=== PATIENT | female | born 1980 | race Caucasian/White ===

== ENCOUNTER 2024-08-03 14:47 | Emergency (ER) | payer MEDICARE, MEDICAID, SELFPAY ==
--- NOTE | ~2024-08-03 | US_ITS ---
EXAMINATION: US PELVIS TRANSABDOMINAL AND TRANSVAGINAL HISTORY: lower abd pain, irreg vaginal bleeding COMPARISON: There are no prior studies for comparison. TECHNIQUE: Transabdominal and endovaginal real-time 2D phan-scale ultrasound was performed. Color Doppler was also performed. FINDINGS: Uterus: The uterus is normal in size, measuring 9.3 x 4.6 x 5.8 cm. Myometrium has a normal echotexture. No fibroids are identified. Endometrium: The endometrial stripe measures 11 mm in thickness. Right ovary: The right ovary measures 3.4 x 1.9 x 2.1 cm. The right ovary is normal in size and echotexture. Left ovary: The left ovary measures 5.9 x 3.7 x 3.2 cm. There is a 4.0 x 2.2 x 3.2 cm simple cyst in the left ovary. Color Doppler analysis of the bilateral ovarian arteries and veins are normal. Pelvic fluid: none. US/US pelvic and transvaginal IMPRESSION: 4.0 x 2.2 x 3.2 cm left ovarian cyst. A follow-up examination in 6 weeks, at a different time in the patient's menstrual cycle, is recommended to document resolution. Electronically signed by: Lobo Tan MD 08/04/2024 08:09 AM [facility]
[2024-08-03 16:09] VITALS: BP 158/88; PULSE 91; RESP 18; O2SAT 98; BMI 54.7
--- NOTE | 2024-08-03 16:14 | ED.ABDPAIN ---
HPI - Abdominal Pain General Chief Complaint: Abdominal Pain Stated Complaint: abd pain Related Data Allergies Allergy/AdvReac Type Severity Reaction Status Date / Time No Known Allergies Allergy Verified 08/04/24 11:03 [facility] Social History Social History Advance Directives: No Advance Directives Information Provided: Yes Do you have a plan to hurt others: No Plan Physical Exam ED Vital Signs: Vital Signs - 24 hr 08/03/24 16:09 Pulse Rate 91 Respiratory Rate 18 Blood Pressure 158/88 H Pulse Oximetry 98 Oxygen Delivery Method Room Air BMI result Body Mass Index 54.7 Course Course Course Narrative: This is a Rapid Medical Examination (RME) performed by Abigail Hou PA-C in triage. Full HPI, ROS, assessment and treatment plan per primary provider in the Main ED. 43 yo female here for eval of lower abdominal pain and irregular vaginal bleeding. Plan: labs, UA, ultrasound ordered Reevaluation(s) Reevaluation #1: Patient left the emergency department before myself or any of the other clinicians could review or explain physical exam findings, test results, need or lack there of for additional testing, treatment options, or a treatment plan. Medical Decision Making Lab Data 08/03/24 17:32 08/03/24 17:31 Labs: Lab Results 08/03/24 08/03/24 08/03/24 Range/Units 17:31 17:32 17:44 WBC 11.8 H (4.8-10.8) X10*3/uL RBC 4.42 (4.20-5.50) X10*6/uL Hgb 12.8 (12.0-16.0) g/dl Hct 37.7 (37.0-47.0) % MCV 85.3 (80.0-98.0) fL MCH 29.0 (27.0-33.0) pg MCHC 34.0 (31.0-35.0) g/dl RDW 13.0 (11.0-16.0) % Plt Count 341 (160-400) X10*3/uL MPV 10.6 (9.4-12.3) fL Immature Gran % (Auto) 0.4 (0.0-0.4) % Neut % (Auto) 55.1 (45-73) % Lymph % (Auto) 31.7 (20-40) % [place] % (Auto) 7.6 (2-11) % Eos % (Auto) 4.6 H (0-4) % Baso % (Auto) 0.6 (0-2) % Lymph # (Auto) 3.7 (1.2-4.9) X10*3/uL [place] # (Auto) 0.9 (0.1-1.2) X10*3/uL Eos # (Auto) 0.5 H (0.0-0.4) X10*3/uL Baso # (Auto) 0.1 (0.0-0.2) X10*3/uL Abs Immat Gran (auto) 0.05 H (0.00-0.03) X10*3/uL Absolute Neuts (auto) 6.5 (2.0-8.3) x10*3/uL Absolute Nucleated RBC 0.000 (0.0-0.012) X10*3/uL Nucleated RBC % (auto) 0.0 (0.0-0.2) /100WBC PT 11.5 (10.9-12.4) SEC INR 1.0 (0.9-1.1) Sodium 137 (135-145) mmol/L Potassium 4.0 (3.3-5.1) mmol/L Chloride 104 (96-108) mmol/L Carbon Dioxide 24 (22-29) mmol/L Anion Gap 13 (12-20) BUN 11 (9-16) mg/dL Creatinine 0.71 (0.5-1.4) mg/dL Estim Creat Clear Calc 151.4 Estimated GFR > 60 Random Glucose 263 H (60-115) mg/dL Calcium 9.1 (8.4-10.2) mg/dL Magnesium 1.6 (1.6-2.6) mg/dL Total Bilirubin 0.2 (0.0-1.0) mg/dL AST 37 H (5-31) U/L ALT 26 (0-31) U/L Alkaline Phosphatase 116 (39-117) U/L Total Protein 7.2 (6.5-8.0) g/dL Albumin 3.9 (3.5-5.0) g/dL Beta HCG, Quant < 2 mIU/mL Urine Color Yellow Urine Appearance Clear Urine pH 6.0 (5.0-9.0) Ur Specific [place] >= 1.030 H (1.005-1.025) Urine Protein Negative (Neg-Trace) mg/dL Urine Glucose (UA) >=1000 H (Negative) mg/dL Urine Ketones Negative (Negative) mg/dL Urine Blood Negative (Negative) Urine Nitrite Negative (Negative) Ur Leukocyte Esterase Negative (Negative) Urine RBC 0-2 (0-2) /HPF Urine WBC 0-5 (0-5) /HPF Ur Squamous Epith Cells 3-5 (0-2) /HPF Urine Bacteria Trace (None Seen) Hyaline Casts 0-2 (0-2) /LPF Urine Test NEGATIVE (NEGATIVE) Discharge Plan Discharge Clinical Impression: Abdominal pain Patient Disposition: Left W/O Completing Treatment Discharge Date/Time: 08/03/24 21:59
[2024-08-03 17:47] LABS: MANUAL DIFF FLAG NO
[2024-08-03 17:50] LABS: Basophils Absolute Auto 0.1 X10*3/uL (0.0-0.2); Basophils Percent Auto 0.6 % (0-2); Eosinophils Absolute Auto 0.5 X10*3/uL (0.0-0.4); Eosinophils Percent Auto 4.6 % (0-4); Hematocrit 37.7 % (37.0-47.0); Hemoglobin 12.8 g/dl (12.0-16.0); Imm Gran Abs Auto 0.05 X10*3/uL (0.00-0.03); Imm Gran Pct Auto 0.4 % (0.0-0.4); Lymphocytes Absolute Auto 3.7 X10*3/uL (1.2-4.9); Lymphocytes Percent Auto 31.7 % (20-40); Mean Corpuscular Volume 85.3 fL (80.0-98.0); Mean Platelet Volume 10.6 fL (9.4-12.3); Monocytes Absolute Auto 0.9 X10*3/uL (0.1-1.2); Monocytes Percent Auto 7.6 % (2-11); Neutrophils Absolute Auto 6.5 x10*3/uL (2.0-8.3); Neutrophils Percent Auto 55.1 % (45-73); Platelet Count 341 X10*3/uL (160-400); Red Blood Count 4.42 X10*6/uL (4.20-5.50); White Blood Count 11.8 X10*3/uL (4.8-10.8)
[2024-08-03 17:52] LABS: Appearance Urine Clear; Color Urine Yellow; Glucose Urine UA >=1000 mg/dL (Negative); Leukocyte Esterase Urine Negative (Negative); Nitrite Urine Negative (Negative); Specific Gravity - Urine >= 1.030 (1.005-1.025); UMIC TRIGGER UACC YES; Urine Blood Negative (Negative); Urine Ketones Negative (Negative); Urine Protein Negative (Neg-Trace)
[2024-08-03 17:53] LABS: UPreg QC Valid YES; Urine Pregnancy NEGATIVE (NEGATIVE)
[2024-08-03 17:56] LABS: Prothrombin Time 11.5 SEC (10.9-12.4)
[2024-08-03 17:56] LABS: Bacteria Urine Trace (None Seen); Hyaline Casts Urine 0-2 /LPF (0-2); RBC Urine 0-2 /HPF (0-2); WBC Urine 0-5 /HPF (0-5)
[2024-08-03 18:23] LABS: Aspartate Amino Transferase 37 U/L (5-31)
[2024-08-03 18:24] LABS: Alanine Aminotransferase 26 U/L (0-31); Albumin Level 3.9 g/dL (3.5-5.0); Alkaline Phosphatase 116 U/L (39-117); Anion Gap 13 (12-20); Bilirubin Total 0.2 mg/dL (0.0-1.0); Blood Urea Nitrogen 11 mg/dL (9-16); Calcium 9.1 mg/dL (8.4-10.2); Carbon Dioxide 24 mmol/L (22-29); Chloride 104 mmol/L (96-108); Creatinine Clr Calc Pharmacy 151.4; Estimated Glomerular Filt Rate > 60; Glucose Random 263 mg/dL (60-115); HCG Quantitative < 2 mIU/mL; Magnesium 1.6 mg/dL (1.6-2.6); Sodium 137 mmol/L (135-145); Total Protein 7.2 g/dL (6.5-8.0)
--- OUTSIDE RECORDS SUMMARY | 2024-08-03 18:47 | XMS_ITS | Clinical Summary ---
Author Organization [facility] it Address [address] [place] [address] Care Team Providers Care Home Care Manager Rn Name Role Phone Unavailable Primary Care Provider Unavailabl e Social History Tobacco Use Types Packs/Day Years Used Date Smoking Tobacco: Never Assessed Comments Unknown Sex and Gender Information Value Date Recorded Sex Assigned at Not on file Legal Sex Female 8:14 PM EST Gender Identity Not on file Sexual Orientation Not on file Plan of Treatment Health Maintenance Due Date Last Done Comments Breast Cancer Screening 1980 DTaP,Tdap,and Td Vaccines (1 - Tdap) 08/27/1999 Hepatitis B Vaccines (1 of 3 - 19+ 3-dose series) 08/27/1999 Cervical Cancer Screening: P ap Smear 2001 Depression Screening 07/04/2023 HIV Screening 07/04/2023 Hepatitis C Screening 07/04/2023 Social Influencers of Health Screening 07/04/2023 COVID-19 Vaccine (2023-2 5 season) 2024 Influenza Vaccine (#1) 2024 HIB Vaccines Aged Out No longer eligi ble based on patient's age to complete this topic HPV Vaccines Aged Out No longer eligi ble based on patient's age to complete this topic Hepatitis A Vaccines Aged Out No long er eligible based on patient's age to complete this topic IPV Vaccines Aged Out No longer eligi ble based on patient's age to complete this topic MMR Vaccines Aged Out No longer eligi ble based on patient's age to complete this topic Meningococcal ACWY Vaccine Aged Out N o longer eligible based on patient's age to complete this topic Meningococcal B Vacine Aged Out No lo nger eligible based on patient's age to complete this topic Pneumococcal Vaccine: Pediat rics (0 to 5 Years) and At-Risk Patients (6 to 64 Years) Aged Out No longer eligible b ased on patient's age to complete this topic RSV Immunization Patients Un yunior 20 months Aged Out No longer eligible b ased on patient's age to complete this topic Varicella Vaccines Aged Out No longer eligible based on patient's age to complete this topic
== END 2024-08-03 21:59 | disposition left against medical advice (07) ==
PROVIDERS: Physician Assistant Medical; Emergency Provider Internal Medicine
DX: R10.30 Lower abdominal pain, unspecified (principal); N93.9 Abnormal uterine and vaginal bleeding, unspecified
CPT/HCPCS: 36415; 76830; 76856; 80053; 81001; 81025; 83735; 84702; 85025; 85610; 99282; 99284

== ENCOUNTER → 2024-08-03 16:14 | Outpatient (BNV) | payer MEDICARE, MEDICAID, SELFPAY | PROVIDERS: Emergency Provider Internal Medicine; Visit Provider Radiology Diagnostic Radiology | DX: N83.202 Unspecified ovarian cyst, left side (principal) | CPT/HCPCS: 76830; 76856 ==

== ENCOUNTER 2024-08-04 10:42 | Emergency (ER) | payer MEDICARE, MEDICAID, SELFPAY ==
[2024-08-04 11:01] VITALS: BP 135/112; PULSE 98; RESP 18; TEMP 36.2; O2SAT 98; BMI 54.1
--- NOTE | 2024-08-04 11:01 | ED.GENADULT ---
HPI - General Adult General Chief complaint: Abdominal Pain Stated complaint: lower abd pain, spotting Time Seen by Provider: 08/04/24 15:08 Source: patient and RN notes reviewed Mode of arrival: ambulatory Limitations: no limitations History of Present Illness ED Provider: Nazanin Monroe PA-C HPI narrative: This is a 43-year-old female, with a history of hypertension and diabetes, who presents emergency department with complaints of lower abdominal pain and spotting. Patient states that her last menstrual period was on July 24. She states that over the last several days she has had abnormal spotting. She states that this is very atypical for her menses. She is sexually active with 1 partner, denies any concerns for any sexually transmitted infections. She denies any fevers, chills, current vaginal bleeding, or vaginal discharge. No vaginal itching. No urinary symptoms. She had a tubal ligation, denies chance of . She states that she took ibuprofen which provided her with some relief yesterday. Denies taking any medications today. No other complaints or concerns at this time. MD complaint: Vaginal bleeding, abdominal pain Onset (ago): day(s) Radiation: non-radiation Quality: aching Pain Consistency: constant Relieving factors: none Exacerbating factors: none Associated symptoms: denies other symptoms Treatments prior to arrival: none Related Data Allergies Allergy/AdvReac Type Severity Reaction Status Date / Time No Known Allergies Allergy Verified 08/04/24 11:03 Review of Systems Review of Systems: Yes all other systems are reviewed and are negative Constitutional: Constitutional: Reports as per [facility] Social History Social History Advance Directives: No Advance Directives Information Provided: Yes Do you have a plan to hurt others: No Plan Physical Exam ED Vital Signs: Vital Signs - 24 hr 08/04/24 11:01 08/04/24 16:49 Temperature 97.1 F 97.1 F Pulse Rate 98 98 Respiratory Rate 18 18 Blood Pressure 135/112 H 00/00 L Pulse Oximetry 98 98 Oxygen Delivery Method Room Air Room Air BMI result Body Mass Index 54.1 Const General: cooperative, comfortable and no acute distress Orientation/consciousness: patient oriented x3 Limitations: no limitations HENMT Head: Yes normal to inspection, Yes normocephalic and Yes atraumatic Ears: hearing grossly normal bilaterally General nose exam: Normal external nose present Face and sinus: Yes normal facial exam Mouth: Normal oral and palatal mucosa present, oropharynx normal and moist mucous membranes Throat: Yes posterior oropharynx normal Eyes General: appearance normal, both eyes and all related structures Eyelids: Yes eyelids normal Conjunctivae: conjunctivae normal Sclerae: sclerae normal Pupils: Equal, round and reactive pupils present EOM: EOMs intact bilaterally Neck Neck: Yes normal visual inspection, Yes full ROM and Yes no lymphadenopathy Lymphatic: no lymphadenopathy noted Chest Chest palpation & inspection: normal inspection of the chest Resp Effort & Inspection: normal respiratory effort and able to speak in complete sentences Auscultation: clear to auscultation bilaterally, no crackles, no rales, no rhonchi and no wheezes Cardio Rate: regular rate Rhythm: regular rhythm Heart sounds: S1 normal heart sound present and S2 normal heart sound present GI Other: Abdomen is soft, with mild tenderness palpation in the left and right suprapubic region, no rebound or guarding. Inspection: Yes normal to inspection Skin General skin exam: no rashes or lesions noted Trauma: no lacerations or abrasions Wounds: no wounds Neuro General: patient oriented x3 and moves all extremities Cranial nerves: Yes Equal, round and reactive pupils present Extrem General: Yes normal to inspection Right upper extremity: normal to inspection Left upper extremity: normal to inspection Right lower extremity: normal to inspection Left lower extremity: normal to inspection Course Course Course Narrative: This is a rapid medical exam performed by Jose Miguel Dias NP: Additional HPI, ROS, PE not included below will be deferred to primary provider. Patient is a 43-year-old female presenting with complaint of vaginal bleeding/spotting which has continued after her normal menstrual period. Last normal menstrual period was 07/24, prior to that it was in the end of June. States at times only notices the bleeding when using the bathroom. Here yesterday but left from the waiting room due to wait time. 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 Plan: will repeat labs, UA Medications Administered Discontinued Medications Generic Name Dose Route Start Last Admin Trade Name Freq PRN Reason Stop Dose Admin Ibuprofen 600 mg 08/04/24 15:50 08/04/24 16:01 Ibuprofen 600 Mg Tablet PO 08/04/24 15:51 600 mg ONCE ONE Administration Sodium Zirconium Cyclosilicate 10 gm 08/04/24 15:50 08/04/24 16:01 Sodium Zirconium Cyclosilicate 10 Gm Powd.Pack PO 08/04/24 15:51 10 gm ONCE ONE Administration Medical Decision Making Medical Decision Making [facility] Narrative: This is a 43-year-old female, with a history of diabetes and hypertension, who presents emergency department for evaluation of abdominal pain and abnormal vaginal bleeding. On arrival, blood pressure 135/112, all other vital signs within normal limits. She is speaking in full sentences under no acute distress. Labs were performed prior to my assessment, she has no leukocytosis, stable H&H, chemistry revealing slight hyponatremic at 134 and slight hyperkalemia at 5.2, she does have a random glucose of 279, and AST of 37. She reports that she does not have an OBGYN or primary care physician at this time. She was referred to the [facility]. She reported to [facility] yesterday however left without being seen secondary to long wait times. At that time she had a pelvic ultrasound which revealed a left ovarian cyst. No evidence of torsion. Patient has tenderness palpation in the suprapubic region. Urine was also collected yesterday did not reveal any signs of infection. She has no urinary symptoms. She states that the bleeding has since stopped, she has no abnormal vaginal discharge. She was deferring a examination at this time. Will administer Lokelma due to hyperkalemia. Will also obtain EKG to ensure no arrhythmia secondary to hyperkalemia. I stressed the importance of following up with an OBGYN as abnormal uterine bleeding can also indicate other processes that would need OBGYN to follow her for. Given strict return precautions. She understands and agrees with plan. Patient stable for discharge. Differential Diagnosis Differential Diagnoses: The differential diagnosis associated with the presentation includes Abnormal uterine bleeding, , UTI, ovarian cyst, Lab Data [facility] Lab Attestation statement: I reviewed the patient's lab results. See MDM 08/04/24 11:13 08/04/24 11:13 Labs: Lab Results 08/04/24 Range/Units 11:13 WBC 8.8 (4.8-10.8) X10*3/uL RBC 4.51 (4.20-5.50) X10*6/uL Hgb 13.0 (12.0-16.0) g/dl Hct 38.5 (37.0-47.0) % MCV 85.4 (80.0-98.0) fL MCH 28.8 (27.0-33.0) pg MCHC 33.8 (31.0-35.0) g/dl RDW 12.8 (11.0-16.0) % Plt Count 257 (160-400) X10*3/uL MPV Not Reportable Immature Gran % (Auto) 0.3 (0.0-0.4) % Neut % (Auto) 60.2 (45-73) % Lymph % (Auto) 25.1 (20-40) % [place] % (Auto) 8.8 (2-11) % Eos % (Auto) 4.9 H (0-4) % Baso % (Auto) 0.7 (0-2) % Lymph # (Auto) 2.2 (1.2-4.9) X10*3/uL [place] # (Auto) 0.8 (0.1-1.2) X10*3/uL Eos # (Auto) 0.4 (0.0-0.4) X10*3/uL Baso # (Auto) 0.1 (0.0-0.2) X10*3/uL Abs Immat Gran (auto) 0.03 (0.00-0.03) X10*3/uL Absolute Neuts (auto) 5.3 (2.0-8.3) x10*3/uL Absolute Nucleated RBC 0.000 (0.0-0.012) X10*3/uL Nucleated RBC % (auto) 0.0 (0.0-0.2) /100WBC Smear Tech's Comments VERIFIED Sodium 134 L (135-145) mmol/L Potassium 5.2 H D (3.3-5.1) mmol/L Chloride 106 (96-108) mmol/L Carbon Dioxide 17 L (22-29) mmol/L Anion Gap 16 (12-20) BUN 10 (9-16) mg/dL Creatinine 0.65 (0.5-1.4) mg/dL Estim Creat Clear Calc 164.1 Estimated GFR > 60 Random Glucose 279 H (60-115) mg/dL Calcium 9.1 (8.4-10.2) mg/dL Total Bilirubin 0.4 (0.0-1.0) mg/dL AST 37 H (5-31) U/L ALT 28 (0-31) U/L Alkaline Phosphatase 106 (39-117) U/L Total Protein 7.4 (6.5-8.0) g/dL Albumin 3.8 (3.5-5.0) g/dL Beta HCG, Quant < 2 mIU/mL Independent Interpretation I performed an independent interpretation of an: EKG Interpretation: EKG normal sinus rhythm at a ventricular rate of 84 beats per minute, MA interval 146, QT/QTC 382/451. Radiology Impression Discussion of test interpretation with radiology: I have reviewed the radiologist's reading. Radiologist Impression: [address] [address] Ultrasound Report Signed Patient: Britni Che MR#: [id number] : 1980 Acct:[id number] Age/Sex: 43 / F ADM Date: 08/03/24 Loc: .ED Attending Dr: Ordering Physician: Carol Hou Date of Service: 08/03/24 Procedure(s): US pelvic and transvaginal Accession Number(s): [id number] cc: Physician,None ; Carol Hou~ EXAMINATION: US PELVIS TRANSABDOMINAL AND TRANSVAGINAL HISTORY: lower abd pain, irreg vaginal bleeding COMPARISON: There are no prior studies for comparison. TECHNIQUE: Transabdominal and endovaginal real-time 2D phan-scale ultrasound was performed. Color Doppler was also performed. FINDINGS: Uterus: The uterus is normal in size, measuring 9.3 x 4.6 x 5.8 cm. Myometrium has a normal echotexture. No fibroids are identified. Endometrium: The endometrial stripe measures 11 mm in thickness. Right ovary: The right ovary measures 3.4 x 1.9 x 2.1 cm. The right ovary is normal in size and echotexture. Left ovary: The left ovary measures 5.9 x 3.7 x 3.2 cm. There is a 4.0 x 2.2 x 3.2 cm simple cyst in the left ovary. Color Doppler analysis of the bilateral ovarian arteries and veins are normal. Pelvic fluid: none. US/US pelvic and transvaginal IMPRESSION: 4.0 x 2.2 x 3.2 cm left ovarian cyst. A follow-up examination in 6 weeks, at a different time in the patient's menstrual cycle, is recommended to document resolution. Electronically signed by: Lobo Tan MD 08/04/2024 08:09 AM [facility] Dictated By: Lobo Tan MD Signed By: <Electronically signed by Lobo Tan MD in OV> Discharge Plan Discharge Clinical Impression: Ovarian cyst, Hyperkalemia, Abnormal uterine bleeding (AUB) Patient Disposition: Home, Self-Care Instructions: Dysfunctional Uterine Bleeding (ED), Ovarian Cyst (ED), Hyperkalemia (ED) Additional Instructions: You were seen in the emergency department due to abnormal uterine bleeding. Your ultrasound yesterday revealed a ovarian cyst. Ovarian cyst can be painful, it is important that you take ibuprofen and or Tylenol as needed for pain. Please follow-up with the OBGYN for further treatment and diagnostics. Your blood work today showed an elevated level of potassium, we gave you 1 time dose of a medication called Lokelma, this helps lower potassium. Drink plenty of fluids get plenty of rest. Follow-up with the primary care physician regarding this visit. Call tomorrow to make an appointment. If any new or worsening symptoms occur including but not limited to severe chest pain, shortness of breath, worsening abdominal pain, please seek emergent care. You need to have a repeat ultrasound in 6 weeks at a different time in your menstrual cycle to ensure that this has resolved. Referrals: David Gutierrez PA-C [Physician Furniture Stainer] - [facility] [Physician] - Willem Staples MD [Physician] - Interventions: ED Discharge Assessment Last Done: 08/04/24 16:49 Discharge Date/Time: 08/04/24 16:49 Print Language: Amharic
[2024-08-04 11:32] LABS: Basophils Absolute Auto 0.1 X10*3/uL (0.0-0.2); Basophils Percent Auto 0.7 % (0-2); Eosinophils Absolute Auto 0.4 X10*3/uL (0.0-0.4); Eosinophils Percent Auto 4.9 % (0-4); Hematocrit 38.5 % (37.0-47.0); Imm Gran Abs Auto 0.03 X10*3/uL (0.00-0.03); Imm Gran Pct Auto 0.3 % (0.0-0.4); Lymphocytes Absolute Auto 2.2 X10*3/uL (1.2-4.9); Lymphocytes Percent Auto 25.1 % (20-40); MANUAL DIFF FLAG SCAN; Mean Corpuscular HGB Conc 33.8 g/dl (31.0-35.0); Mean Corpuscular Hemoglobin 28.8 pg (27.0-33.0); Mean Corpuscular Volume 85.4 fL (80.0-98.0); Monocytes Absolute Auto 0.8 X10*3/uL (0.1-1.2); Monocytes Percent Auto 8.8 % (2-11); Neutrophils Absolute Auto 5.3 x10*3/uL (2.0-8.3); Neutrophils Percent Auto 60.2 % (45-73); PLT CLUMP 1; Red Blood Count 4.51 X10*6/uL (4.20-5.50); Red Cell Distribution Width 12.8 % (11.0-16.0); SCAN SMEAR FLAG 1
[2024-08-04 11:50] LABS: White Blood Count 8.8 X10*3/uL (4.8-10.8)
[2024-08-04 11:51] LABS: Platelet Count 257 X10*3/uL (160-400)
[2024-08-04 11:59] LABS: Alanine Aminotransferase 28 U/L (0-31); Albumin Level 3.8 g/dL (3.5-5.0); Alkaline Phosphatase 106 U/L (39-117); Anion Gap 16 (12-20); Bilirubin Total 0.4 mg/dL (0.0-1.0); Blood Urea Nitrogen 10 mg/dL (9-16); Calcium 9.1 mg/dL (8.4-10.2); Carbon Dioxide 17 mmol/L (22-29); Chloride 106 mmol/L (96-108); Creatinine Clr Calc Pharmacy 164.1; Estimated Glomerular Filt Rate > 60; Glucose Random 279 mg/dL (60-115); HCG Quantitative < 2 mIU/mL; Potassium 5.2 mmol/L (3.3-5.1); Sodium 134 mmol/L (135-145); Total Protein 7.4 g/dL (6.5-8.0)
[2024-08-04 12:19] LABS: Aspartate Amino Transferase 37 U/L (5-31)
[2024-08-04 13:19] LABS: SLIDE REVIEW VERIFIED
--- OUTSIDE RECORDS SUMMARY | 2024-08-04 13:48 | XMS_ITS | Clinical Summary ---
Author Organization [facility] it Address [address] [place] [address] Care Team Providers Care Alpine Patroller Name Role Phone Unavailable Primary Care Provider [...]
--- NOTE | 2024-08-04 15:29 | ECG_ITS ---
Test Reason : HIGH K Blood Pressure : */* mmHG Vent. Rate : 84 BPM Atrial Rate : 84 BPM P-R Int : 146 ms QRS Dur : 76 ms QT Int : 382 ms P-R-T Axes : 50 43 17 degrees QTcB Int : 451 ms Normal sinus rhythm Normal ECG No previous ECGs available Referred By: Nazanin Monroe Electronically Signed By: Julio Madden
[2024-08-04] MEDS: Ibuprofen 600 MG TABLET PO (16:01)
[2024-08-04] MEDS: Sodium Zirconium Cyclosilicate 10 GM POWD.PACK PO (16:01)
[2024-08-04 16:49] VITALS: BP 00/00; PULSE 98; RESP 18; TEMP 36.2; O2SAT 98
== END 2024-08-04 16:49 | disposition home or self-care (01) ==
PROVIDERS: Registered Nurse Emergency; Emergency Provider Emergency Medicine
DX: N83.202 Unspecified ovarian cyst, left side (principal); R10.30 Lower abdominal pain, unspecified; E87.5 Hyperkalemia; R10.2 Pelvic and perineal pain; N93.9 Abnormal uterine and vaginal bleeding, unspecified; Z79.899 Other long term (current) drug therapy
CPT/HCPCS: 36415; 80053; 84702; 85025; 93005; 99283

== ENCOUNTER → 2024-08-04 15:29 | Outpatient (BNV) | payer MEDICARE, MEDICAID, SELFPAY | PROVIDERS: Emergency Provider Emergency Medicine; Visit Provider Internal Medicine Cardiovascular Disease | DX: E87.5 Hyperkalemia (principal); R10.9 Unspecified abdominal pain | CPT/HCPCS: 93010 ==

== ENCOUNTER 2024-09-22 11:04 | Inpatient (IN) | payer MEDICARE, MEDICAID, SELFPAY ==
--- NOTE | ~2024-09-22 | XR_ITS ---
EXAMINATION: XR CHEST CLINICAL INFORMATION: sob, cough; follow up COMPARISON: 09/22/2024. TECHNIQUE: Frontal view of the chest was obtained. FINDINGS: The cardiac, hilar, and mediastinal contours are normal. The lungs are clear bilaterally. No pneumothorax or effusion. No focal osseous or soft tissue abnormality. XR/XR chest 1V IMPRESSION: No active pulmonary disease. No change. Electronically signed by: Luis Manuel Feldman MD 09/25/2024 10:48 AM EDT
--- NOTE | ~2024-09-22 | XR_ITS ---
EXAMINATION: XR CHEST CLINICAL INFORMATION: SOB COMPARISON: None available. TECHNIQUE: Frontal view of the chest was obtained. FINDINGS: The cardiac, hilar, and mediastinal contours are normal. The lungs are clear bilaterally. No pneumothorax or effusion. No focal osseous or soft tissue abnormality. XR/XR chest 1V IMPRESSION: Normal chest. Electronically signed by: Luis Manuel Feldman MD 09/22/2024 01:52 PM EDT RP
--- NOTE | 2024-09-22 11:27 | ED_ITS ---
HPI - General Adult General Chief complaint: Asthma Stated complaint: SOB, asthma Time Seen by Provider: 09/22/24 11:30 Source: patient Mode of arrival: ambulatory Limitations: no limitations History of Present Illness ED Provider: Sumaya Ann PA-C HPI narrative: Patient is a 44 year old assigned female at with a history of asthma and ovarian cysts presenting to the emergency department today with shortness of breath and wheezing. Patient states that over the last 2 weeks she has been having a cough with increased wheezing despite using her breathing treatments. Patient denies any dizziness, lightheadedness, abdominal pain, nausea, vomiting, fever, chills, blurry vision, double vision, loss of vision, chest pain, back pain, night sweats, pain with urination, increased urinary frequency, increased urinary urgency, blood in her urine or stool, syncope or a near syncopal episode, recent trauma or falls, bowel incontinence, bladder incontinence, or any other complaints at this time. Onset (ago): week(s) (2) Relieving factors: none Exacerbating factors: none Associated symptoms: shortness of breath Treatments prior to arrival: other (breathing treatments - no improvements) Related Data Allergies Allergy/AdvReac Type Severity Reaction Status Date / Time No Known Allergies Allergy Verified 09/22/24 11:30 Review of Systems 2 Constitutional: Constitutional: Reports no additional constitutional complaints, Denies chills, Denies fever(s) and Denies night sweats Eyes: Eyes: Reports no additional eye complaints, Denies blurry vision, Denies change in vision, Denies diplopia, Denies eye discharge, Denies loss of vision and Denies eye pain ENT: Denies dizziness Cardiovascular: Cardiovascular: Reports no additional cardiovascular complaints, Denies chest pain, Denies lightheadedness, Denies Loss of Consciousness and Reports dyspnea Respiratory: Respiratory: Reports no additional respiratory complaints, Reports dyspnea and Reports wheezing Gastrointestinal: Gastrointestinal: Reports no additional gastrointestinal complaints, Denies abdominal pain, Denies melena, Denies hematochezia, Denies change in bowel habits and Denies change in stool character Genitourinary: Genitourinary: Denies hematuria, Denies urinary frequency, Denies dysuria, Denies urinary incontinence, Denies urinary hesitancy and Denies urinary urgency Musculoskeletal: Musculoskeletal: Reports no additional musculoskeletal complaints, Denies numbness and Denies tingling Neurologic: Denies dizziness, Denies loss of vision, Denies numbness and Denies tingling Psychiatric: Psychiatric: Reports no additional psychiatric complaints Endocrine: Endocrine: Reports no additional endocrine complaints Hematologic/Lymphatic: Hematologic/Lymphatic: Reports no additional hematologic/lymphatic complaints Allergic/Immunologic: Allergic/Immunologic: Reports no additional allergic/immunologic complaints and Reports wheezing PMFSH Past Medical History Attestation statement: The following information was validated with the patient. Source: old records reviewed and nursing notes reviewed Social History Social History Advance Directives: No Advance Directives Information Provided: Yes Do you have a plan to hurt others: No Plan Physical Exam ED Vital Signs: Vital Signs - 24 hr 09/22/24 11:28 09/22/24 11:44 09/22/24 13:50 Temperature 97.7 F Pulse Rate 104 H 110 H 100 Respiratory Rate 16 26 H 29 H Blood Pressure 162/102 H Pulse Oximetry 98 Oxygen Delivery Method Room Air BMI result Body Mass Index 54.1 Const General: cooperative, no acute distress, alert and awake Nutritional Appearance: well nourished Orientation/consciousness: patient oriented x3 Limitations: no limitations HENMT Head: Yes normal to inspection and Yes atraumatic Ears: hearing grossly normal bilaterally and external ears normal General nose exam: Normal external nose present, no nasal discharge noted and no epistaxis Face and sinus: Yes normal facial exam, No abrasion and No laceration Mouth: Normal oral and palatal mucosa present, no drooling and no muffled voice Eyes General: appearance normal, both eyes and all related structures Periorbital: periorbital findings normal Eyelids: Yes eyelids normal Conjunctivae: conjunctivae normal Pupils: Equal, round and reactive pupils present EOM: EOMs intact bilaterally Neck Neck: Yes normal visual inspection, Yes full ROM and Yes no lymphadenopathy Chest Chest palpation & inspection: normal inspection of the chest Resp Effort & Inspection: able to speak in complete sentences, audible wheezes and labored Auscultation: wheezes scattered wheezes and throughout GI Inspection: Yes normal to inspection Neuro General: patient oriented x3, moves all extremities and CN's II-XI intact bilaterally Cranial nerves: Yes Equal, round and reactive pupils present Cognition (Neuro): normal cognition Extrem General: Yes normal to inspection, Yes full ROM and Yes capillary refill normal Psych Appearance: grossly normal Mental Status: mental status grossly normal Affect: normal affect Attitude: cooperative Thought process: Normal thought process present Thought content: Normal thought content present Insight: Good insight present (Psych) Course Course Course Narrative: RME performed by Sumaya Ann PA-C. Patient is a 44 year old assigned female at presenting to the emergency department with wheezing and shortness of breath. Patient states that she has been short of breath with increased wheezing over the last 2 weeks. Patient has a history of asthma. Detailed physical exam and review of systems are deferred to the gasket former. EKG,labs, imaging, and swabs ordered. Patient placed back in the waiting room pending room availability and results. Medications Administered Discontinued Medications Generic Name Dose Route Start Last Admin Trade Name Freq PRN Reason Stop Dose Admin Ceftriaxone Sodium 1 gm 09/22/24 12:59 09/22/24 13:26 Ceftriaxone Sodium 1 Gm Vial IVPUSH 09/22/24 13:00 1 gm ONCE ONE Administration Albuterol Sulfate 5 mg/ 0 mg 09/22/24 11:38 09/22/24 11:41 Albuterol/Ipratropium 3 ml INHALE 09/22/24 11:39 1 each ONCE ONE Administration Albuterol Sulfate 7.5 mg/ 0 mg 09/22/24 13:46 09/22/24 13:48 Albuterol/Ipratropium 3 ml INHALE 09/22/24 13:47 1 each ONCE ONE Administration Magnesium Sulfate/Dextrose 1 gm in 100 mls @ 100 mls/hr 09/22/24 11:28 09/22/24 12:50 Magnesium Sulfate/D5w IV 09/22/24 12:27 Infused ONCE ONE Infusion Azithromycin 500 mg/ Sodium 250 mls @ 125 mls/hr 09/22/24 12:59 09/22/24 13:27 Chloride IV 09/22/24 14:58 125 mls/hr ONCE ONE Administration Methylprednisolone Sodium Succinate 60 mg 09/22/24 11:28 09/22/24 11:45 Methylprednisolone Sod Succ 125 Mg/2 Ml Vial IVPUSH 09/22/24 11:29 60 mg ONCE ONE Administration Medical Decision Making Medical Decision Making MDM Narrative: Patient is a 44 year old assigned female at with a history of asthma and ovarian cysts presenting to the emergency department today with shortness of breath and wheezing. Patient's physical exam was as noted in the physical exam portion of this note. Patient's blood work showed a mildly elevated WBC count of 13.6 but were otherwise unremarkable. Patient's EKG showed tachycardia. Patient's chest x-ray showed no acute process. Patient was given IV solu-medrol, magnesium, and multiple breathing treatments but continues to have wheezing and increased work of breathing. I spoke to the hospitalist service who agreed to admission. I explained my physical exam findings as well as all test results to the patient. I answered all questions asked by the patient. Patient verbalized agreement and understanding with this treatment plan and admission. Differential Diagnosis Differential Diagnoses: The differential diagnosis associated with the presentation includes Asthma exacerbation Wheezing Diff breathing Admission/Observation Consideration of admission/observation: Escalation of care including admission/observation considered Patient admitted as noted in the MDM Rationale portion of this note. Consult Healthcare Provider Management of the patient was discussed with: Hospitalist (agreed to admission as noted in the MDM Rationale portion of this note. ) Lab Data [facility] Lab Attestation statement: I reviewed the patient's lab results. My interpretation of these results are in the MDM Rationale portion of this note. 09/22/24 11:49 09/22/24 11:49 Labs: Lab Results 09/22/24 09/22/24 09/22/24 Range/Units 11:49 11:50 11:56 WBC 13.6 H (4.8-10.8) X10*3/uL RBC 4.59 (4.20-5.50) X10*6/uL Hgb 12.8 (12.0-16.0) g/dl Hct 38.7 (37.0-47.0) % MCV 84.3 (80.0-98.0) fL MCH 27.9 (27.0-33.0) pg MCHC 33.1 (31.0-35.0) g/dl RDW 13.0 (11.0-16.0) % Plt Count 324 D (160-400) X10*3/uL MPV 10.9 (9.4-12.3) fL Immature Gran % (Auto) 0.5 H (0.0-0.4) % Neut % (Auto) 71.5 (45-73) % Lymph % (Auto) 18.9 L (20-40) % [place] % (Auto) 6.5 (2-11) % Eos % (Auto) 2.2 (0-4) % Baso % (Auto) 0.4 (0-2) % Lymph # (Auto) 2.6 (1.2-4.9) X10*3/uL [place] # (Auto) 0.9 (0.1-1.2) X10*3/uL Eos # (Auto) 0.3 (0.0-0.4) X10*3/uL Baso # (Auto) 0.1 (0.0-0.2) X10*3/uL Abs Immat Gran (auto) 0.07 H (0.00-0.03) X10*3/uL Absolute Neuts (auto) 9.7 H (2.0-8.3) x10*3/uL Absolute Nucleated RBC 0.000 (0.0-0.012) X10*3/uL Nucleated RBC % (auto) 0.0 (0.0-0.2) /100WBC VBG pH 7.45 H (7.32-7.43) VBG pCO2 36 mmHg VBG pO2 51 mmHg VBG HCO3 25 (22-26) mmol/L VBG O2 Saturation 83.0 % VBG Base Excess 1.6 mmol/L Sodium 135 (135-145) mmol/L Potassium 4.0 D (3.3-5.1) mmol/L Chloride 101 (96-108) mmol/L Carbon Dioxide 24 (22-29) mmol/L Anion Gap 14 (12-20) BUN 5 L (9-16) mg/dL Creatinine 0.65 (0.5-1.4) mg/dL Estim Creat Clear Calc 162.4 Estimated GFR > 60 Random Glucose 318 H (60-115) mg/dL Calcium 9.2 (8.4-10.2) mg/dL Magnesium 1.6 (1.6-2.6) mg/dL Total Bilirubin 0.4 (0.0-1.0) mg/dL AST 20 (5-31) U/L ALT 24 (0-31) U/L Troponin I High Sens < 2.7 (<3.5-17.0) ng/L Total Protein 7.2 (6.5-8.0) g/dL Albumin 4.0 (3.5-5.0) g/dL Independent Interpretation I performed an independent interpretation of an: EKG and Plain X-Ray Interpretation: My interpretation is in agreement with the radiologist's impression of this imaging study. L EXAMINATION: XR CHEST CLINICAL INFORMATION: SOB COMPARISON: None available. TECHNIQUE: Frontal view of the chest was obtained. FINDINGS: The cardiac, hilar, and mediastinal contours are normal. The lungs are clear bilaterally. No pneumothorax or effusion. No focal osseous or soft tissue abnormality. XR/XR chest 1V IMPRESSION: Normal chest. Electronically signed by: Luis Manuel Feldman MD 09/22/2024 01:52 PM EDT RP Dictated By: Luis Manuel Feldman MD Signed By: Electronically signed by Luis Manuel Feldman MD 09/22/24 1352 I independently interpreted this EKG and am in agreement with the below findings: Vent. Rate: 107 BPM Atrial Rate: 107 BPM P-R Int: 136 ms QRS Dur: 72 ms QT Int: 344 ms P-R-T Axes: 54 30 43 degrees QTcB Int: 459 ms Sinus tachycardia Possible Left atrial enlargement When compared with ECG of 04-Aug-2024 16:12, Nonspecific T wave abnormality has replaced inverted T waves in Inferior leads Referred By: Sumaya Ann Electronically Signed By: SURAJ TORRES MD Dictated By: Suraj Torres MD Signed By: Electronically signed by Suraj Torres MD 09/22/24 1408 Radiology Impression Discussion of test interpretation with radiology: I have reviewed the radiologist's reading. Critical Care Time Critical Care Time Critical Care Time: Yes Total Critical Care Time: 38 Attestation: I spent 38 minutes of Critical Care Time with this patient. This does not include time spent on separately reported billable procedures. Discharge Plan Discharge Clinical Impression: Asthma with acute exacerbation Patient Disposition: Admitted As Inpatient Print Language: Estonian
[2024-09-22 11:28] VITALS: BP 162/102; PULSE 104; RESP 16; TEMP 36.5; O2SAT 98; BMI 54.1
--- NOTE | 2024-09-22 11:29 | ECG_ITS ---
Test Reason : SOB Blood Pressure : */* mmHG Vent. Rate : 107 BPM Atrial Rate : 107 BPM P-R Int : 136 ms QRS Dur : 72 ms QT Int : 344 ms P-R-T Axes : 54 30 43 degrees QTcB Int : 459 ms Sinus tachycardia Possible Left atrial enlargement Borderline ECG When compared with ECG of 04-Aug-2024 16:12, Nonspecific T wave abnormality has replaced inverted T waves in Inferior leads Referred By: Sumaya Ann Electronically Signed By: AMARIS TORRES MD
[2024-09-22] MEDS: Albuterol Sulfate 5 MG, Albuterol/Iprat 2.5/0.5MG 3 ML 3 ML INHALE (11:41)
[2024-09-22 11:44] VITALS: PULSE 110; RESP 26; O2SAT 96
[2024-09-22] MEDS: methylPREDNISolone Sod Succ 125 MG/2 ML VIAL 60 MG IVPUSH (11:45)
[2024-09-22] MEDS: Magnesium Sulfate/D5W 1 GM/100 ML PIGGYBACK IV (11:46)
[2024-09-22 11:55] LABS: MANUAL DIFF FLAG NO
[2024-09-22 11:56] LABS: Hemoglobin 12.8 g/dl (12.0-16.0); Red Blood Count 4.59 X10*6/uL (4.20-5.50); White Blood Count 13.6 X10*3/uL (4.8-10.8)
[2024-09-22 11:57] LABS: Basophils Absolute Auto 0.1 X10*3/uL (0.0-0.2); Basophils Percent Auto 0.4 % (0-2); Eosinophils Absolute Auto 0.3 X10*3/uL (0.0-0.4); Eosinophils Percent Auto 2.2 % (0-4); Hematocrit 38.7 % (37.0-47.0); Imm Gran Abs Auto 0.07 X10*3/uL (0.00-0.03); Imm Gran Pct Auto 0.5 % (0.0-0.4); Lymphocytes Absolute Auto 2.6 X10*3/uL (1.2-4.9); Lymphocytes Percent Auto 18.9 % (20-40); Mean Corpuscular HGB Conc 33.1 g/dl (31.0-35.0); Mean Corpuscular Hemoglobin 27.9 pg (27.0-33.0); Mean Corpuscular Volume 84.3 fL (80.0-98.0); Mean Platelet Volume 10.9 fL (9.4-12.3); Monocytes Absolute Auto 0.9 X10*3/uL (0.1-1.2); Monocytes Percent Auto 6.5 % (2-11); Neutrophils Absolute Auto 9.7 x10*3/uL (2.0-8.3); Neutrophils Percent Auto 71.5 % (45-73); Platelet Count 324 X10*3/uL (160-400)
[2024-09-22 12:00] LABS: VBG Base Excess 1.6 mmol/L; VBG HCO3 25 mmol/L (22-26); VBG pCO2 36 mmHg; VBG pH 7.45 (7.32-7.43); VBG pO2 51 mmHg
[2024-09-22 12:00] LABS: Venous Blood Gas 7.446
[2024-09-22 12:18] LABS: Alanine Aminotransferase 24 U/L (0-31); Anion Gap 14 (12-20); Aspartate Amino Transferase 20 U/L (5-31); Bilirubin Total 0.4 mg/dL (0.0-1.0); Blood Urea Nitrogen 5 mg/dL (9-16); Calcium 9.2 mg/dL (8.4-10.2); Carbon Dioxide 24 mmol/L (22-29); Chloride 101 mmol/L (96-108); Creatinine Clr Calc Pharmacy 162.4; Estimated Glomerular Filt Rate > 60; Glucose Random 318 mg/dL (60-115); Magnesium 1.6 mg/dL (1.6-2.6); Sodium 135 mmol/L (135-145); Total Protein 7.2 g/dL (6.5-8.0)
[2024-09-22 12:28] LABS: Troponin-I High Sensitivity < 2.7 ng/L (<3.5-17.0)
[2024-09-22] MEDS: cefTRIAXone sodium 1 GM VIAL IVPUSH (13:26)
[2024-09-22] MEDS: Azithromycin 500 MG in 0.9 % Sodium Chloride 250 ML 125 MG IV (13:27)
[2024-09-22] MEDS: Albuterol Sulfate 7.5 MG, Albuterol/Iprat 2.5/0.5MG 3 ML 3 ML INHALE (13:48)
[2024-09-22 13:50] VITALS: PULSE 100; RESP 29; O2SAT 97
--- OUTSIDE RECORDS SUMMARY | 2024-09-22 15:18 | XMS_ITS | Clinical Summary ---
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
--- NOTE | 2024-09-22 16:17 | P.HPHOSP_ITS ---
History of Present Illness Date of Service: 09/22/24 Attending physician on admission: Rudi De La Cruz Chief Complaint: Shortness of breath and wheezing 44-year-old female with history of asthma/COPD overlap, hypertension, insulin- dependent type 2 diabetes who is morbidly obese with BMI greater than 50 for who is a current 1/2 pack per day cigarette smoker presented to the ED earlier today for evaluation of shortness of breath and wheezing with productive cough ongoing for 2 weeks and worsening. She has been using her albuterol inhaler up to every 15 minutes without much relief. She has no recent hospitalizations for her asthma or COPD and has never been intubated. She describes a chest tightness with inspiration and cough. Denies any fevers, chills, sore throat, congestion, abdominal pain, nausea, vomiting, diarrhea, urinary symptoms, orthopnea, lightheadedness, palpitations, chest pressure. In the ED, patient has been tachypneic to 29 and tachycardic. She has a leukocytosis of 13.6. Renal function and electrolyte levels normal. Glucose 318. ABG reassuring with pH 7.45, pCO2 36, bicarb 25. Troponin undetectable. CXR unremarkable. In the ED, was given 60 mg IV methylprednisolone, 1 g IV ceftriaxone, 500 mg Zithromax, 1 g magnesium, and multiple nebs/DuoNebs. Review of Systems 2 Review of Systems: Yes all other systems are reviewed and are negative [facility] Medical History Type 2 diabetes mellitus Obesity Hypertension Asthma-COPD overlap syndrome Social History Household Members: Significant Other and Children Housing: Apartment Alcohol intake: former Patient Tobacco Use Status: Current everyday Tobacco user Tobacco use type: Cigarette Cigarettes Per Day: 10 Smoked in Last 30 Days: Yes e-Cigarette/Vaping Use: Never Used Patient Interested in Nicotine Replacement: Yes Patient Given Instructions on How to Stop Smoking: Yes Date Education Initiated: 09/22/24 Use of substances other than those prescribed or required for medical reasons: Yes Substance Use Type: Marijuana Substance Use Frequency: Occasionally Currently Displaying Signs/Symptoms of Drug Intoxication Withdrawal: No Have you been hit, kicked, punched, or otherwise hurt by someone within the past year? If so, by whom?: No Do you feel safe in your current relationship?: Yes Is there a partner from a previous relationship who is making you feel unsafe now?: No Are you made to feel afraid or neglected: No Advance Directives: No Advance Directives Information Provided: Yes Do you have a plan to hurt others: No Plan Recently lost weight without trying: No How much weight loss: Not applicable Eating poorly because of decreased appetite: No Nutrition screen score: 0 Nutrition Risks: No Nutritional Risk Patient : No Meds Allergies Allergy/AdvReac Type Severity Reaction Status Date / Time No Known Allergies Allergy Verified 09/22/24 11:30 Home Medications ?Medication ?Instructions ?Recorded ?Confirmed ?Last Taken ?Type albuterol sulfate 2.5 mg/3 mL 2.5 mg continuous nebulization QID 09/22/24 09/22/24 Unknown History (0.083 %) solution for nebulization albuterol sulfate 90 mcg/actuation 1 puff inhalation Q4-6H PRN 09/22/24 09/22/24 Unknown History aerosol inhaler (Ventolin HFA) wheezing fluticasone propionate 230 2 puff inhalation BID 09/22/24 09/22/24 09/21/24 History mcg-salmeterol 21 mcg/actuation HFA inhaler tiotropium bromide 2.5 2 puff inhalation DAILY 09/22/24 09/22/24 09/21/24 History mcg/actuation mist for inhalation (Spiriva Respimat) Physical Exam 2 Vital Signs and Narrative: Vital Signs: Last Vital Signs Temp 97.7 F 09/22/24 11:28 Pulse 100 09/22/24 13:50 Resp 29 H 09/22/24 13:50 BP 162/102 H 09/22/24 11:28 Pulse Ox 98 09/22/24 11:28 O2 Del Method Room Air 09/22/24 11:28 BMI result Body Mass Index 54.1 Constitutional - Awake and Alert, No apparent distress Eyes - PERRLA, EOMI Cardiovascular - S1S2, RRR, No edema Respiratory - Normal lung expansion, increased wob with mild distress, bilateral wheezing with good air movement Gastrointestinal - NT / ND; +BS; No rebound or guarding Extremities - no calf tenderness bilaterally, no swelling Skin - Warm/Dry Neurological - Alert & oriented x3 Psychological - anxious appearing Results Labs 09/23/24 05:58 09/23/24 05:58 Labs: Laboratory Results - last 24 hr 09/22/24 09/22/24 11:49 11:56 MCV 84.3 MCH 27.9 MCHC 33.1 RDW 13.0 Plt Count 324 D MPV 10.9 Immature Gran % (Auto) 0.5 H Neut % (Auto) 71.5 Lymph % (Auto) 18.9 L [place] % (Auto) 6.5 Eos % (Auto) 2.2 Baso % (Auto) 0.4 Lymph # (Auto) 2.6 [place] # (Auto) 0.9 Eos # (Auto) 0.3 Baso # (Auto) 0.1 Abs Immat Gran (auto) 0.07 H Absolute Neuts (auto) 9.7 H Absolute Nucleated RBC 0.000 Nucleated RBC % (auto) 0.0 VBG pH 7.45 H VBG pCO2 36 VBG pO2 51 VBG HCO3 25 VBG O2 Saturation 83.0 VBG Base Excess 1.6 Anion Gap 14 Estim Creat Clear Calc 162.4 Estimated GFR > 60 Random Glucose 318 H Calcium 9.2 Magnesium 1.6 Total Bilirubin 0.4 AST 20 ALT 24 Total Protein 7.2 Albumin 4.0 Imaging Radiologist's Impressions: Impressions Chest X-Ray 09/22/24 13:30 IMPRESSION: Normal chest. Electronically signed by: Luis Manuel Feldman MD 09/22/2024 01:52 PM EDT RP Assessment and Plan (1) COPD exacerbation: Status: Acute Plan 44-year-old female with history of asthma/COPD overlap, hypertension, insulin- dependent type 2 diabetes who is morbidly obese with BMI greater than 50 for who is a current 1/2 pack per day cigarette smoke admitted for further evaluation management of COPD exacerbation. Acute asthma/COPD exacerbation CXR negative for any acute cardiopulmonary abnormality Check RPP IV methylprednisolone 40 mg b.i.d. DuoNebs q.4h while awake, albuterol p.r.n. Azithromycin for pleiotropic effect Continue maintenance inhalers No hypoxia Sirs criteria WBC 13.5 likely 2/2 viral illness. tachypnea due to resp distress/anxiety, tachycardia r/t albuterol use No sepsis/severe sepsis Insulin-dependent type 2 diabetes Check hemoglobin A1c Dose adjusted basal insulin POC glucose, diabetic diet SSI Hypertension Continue amlodipine Super morbid obesity BMI 54.1 Weight loss efforts encouraged Nicotine dependence Cessation encouraged Nicotine patch for replacement therapy DVT prophylaxis-Lovenox Full code Patient requires inpatient stay at least 2 midnights for management of acute COPD exacerbation with mild respiratory distress requiring IV steroids, scheduled DuoNebs, IV antibiotics, and close monitoring of respiratory status to monitor for and prevent decompensation Quality Stroke Does the patient have a stroke diagnosis?: No VTE Prior VTE?: No VTE Risk Level:: Medical - moderate - high VTE Device Contraindication: Treatment Not Indicated VTE Drug Contraindication: N/A - Med Ordered
[2024-09-22] MEDS: Enoxaparin Sodium 40 MG/0.4 ML SYRINGE SUBCUT (16:26)
[2024-09-22] MEDS: Nicotine 14 MG PATCH.TD24 TRANSDERMA (16:26)
[2024-09-22 16:47] LABS: Venous Blood Gas Refer to POC result
[2024-09-22 16:48] LABS: VBG Base Excess -3.1 mmol/L; VBG HCO3 20 mmol/L (22-26); VBG pCO2 32 mmHg; VBG pO2 48 mmHg
[2024-09-22 16:53] LABS: Influenza A PCR NEGATIVE (Negative); Influenza B PCR NEGATIVE (Negative); Resp Syncy Virus RNA Qual PCR NEGATIVE (Negative); SARS COV2 PCR INHOUSE NEGATIVE (Negative)
[2024-09-22 16:59] LABS: Alkaline Phosphatase 107 U/L (39-117)
[2024-09-22 17:08] LABS: Glucose, Whole Blood 516 mg/dL (60-115)
[2024-09-22] MEDS: Benzonatate 100 MG CAPSULE PO (17:10)
[2024-09-22] MEDS: Insulin Lispro 100 UNIT/ML 3 ML VIAL SUBCUT ×4 (17:22→21:08)
[2024-09-22 17:24] VITALS: BP 155/80; PULSE 111; RESP 24; TEMP 37.1; O2SAT 97
--- NOTE | 2024-09-22 18:10 | PHA.MEDREC ---
Addendum entered by Froilan Santos [facility] 09/22/24 18:25: Med rec reviewed Original Note: Pharmacy Consult ? Medication Reconciliation Pharmacy has completed the medication reconciliation. Spoke to patient to confirm med list. Patient states she is taking Advair HFA, however last fill date was 11/18/23 for 30 days Spiriva Respimat, however last fill date was 11/18/23 for 30 days, Tizandine 4 mg, however there are no claims for, and Trazadone 100 mg, however there are no claims for. Patient states she fill her medications at [facility]. call [facility] to confirm and they stated patient hasn't filled these medications since November of 2023. I also Called [facility] pharmacy and they also confirmed no recent claims .
[2024-09-22 18:23] LABS: Glucose, Whole Blood 541 mg/dL (60-115)
[2024-09-22] MEDS: Insulin Lispro 100 UNIT/ML 3 ML VIAL 10 UNIT SUBCUT (18:33)
[2024-09-22] MEDS: 0.9 % Sodium Chloride 1,000 ML 999 ML IV (18:34)
[2024-09-22 19:09] LABS: Glucose, Whole Blood 514 mg/dL (60-115)
[2024-09-22] MEDS: guaiFEN/Codeine SF 200/20/10ML 10 ML LIQUID PO ×2 (19:21→23:43)
[2024-09-22] MEDS: Albuterol/Iprat 2.5/0.5MG 3 ML AMPUL.NEB INHALE (19:36)
[2024-09-22 19:37] VITALS: PULSE 114; RESP 24; O2SAT 99
[2024-09-22 20:00] VITALS: BP 160/98; PULSE 112; RESP 20; TEMP 36.2; O2SAT 95
[2024-09-22 20:33] LABS: Glucose, Whole Blood 467 mg/dL (60-115)
[2024-09-22] MEDS: Insulin Glargine,Hum.rec.anlog 100 UNIT/ML 10 ML VIAL 20 UNIT SUBCUT (21:07)
[2024-09-22] MEDS: 0.9 % Sodium Chloride Flush 3 ML SYRINGE IVFLUSH (21:08)
[2024-09-22] MEDS: Insulin Regular, Human 100 UNIT/ML 10 ML VIAL 10 UNIT IVPUSH (21:24)
[2024-09-22 22:27] LABS: Glucose, Whole Blood 414 mg/dL (60-115)
[2024-09-22] MEDS: TiZANidine HCL 4 MG TABLET PO (22:31)
[2024-09-22] MEDS: traZODone HCL 100 MG TABLET PO (22:31)
[2024-09-22] MEDS: Docusate Sodium 100 MG CAPSULE PO (22:32)
[2024-09-23] VITALS (10 sets, daily range): BP systolic 119–173; BP diastolic 63–92; PULSE 89–129; RESP 17–24; TEMP 36.1–36.7; O2SAT 94–98
[2024-09-23] MEDS: guaiFEN/Codeine SF 200/20/10ML 10 ML LIQUID PO ×4 (05:12→21:13)
[2024-09-23] MEDS: Benzonatate 100 MG CAPSULE PO ×3 (05:12→21:24)
[2024-09-23] MEDS: Albuterol/Iprat 2.5/0.5MG 3 ML AMPUL.NEB INHALE ×5 (05:19→19:24)
[2024-09-23 06:45] LABS: MANUAL DIFF FLAG NO
[2024-09-23 07:00] LABS: Basophils Percent Auto 0.2 % (0-2); Hematocrit 36.9 % (37.0-47.0); Hemoglobin 12.3 g/dl (12.0-16.0); Imm Gran Abs Auto 0.15 X10*3/uL (0.00-0.03); Lymphocytes Absolute Auto 2.1 X10*3/uL (1.2-4.9); Lymphocytes Percent Auto 13.7 % (20-40); Mean Corpuscular HGB Conc 33.3 g/dl (31.0-35.0); Mean Corpuscular Hemoglobin 28.3 pg (27.0-33.0); Mean Corpuscular Volume 84.8 fL (80.0-98.0); Mean Platelet Volume 11.6 fL (9.4-12.3); Monocytes Percent Auto 6.6 % (2-11); Neutrophils Absolute Auto 11.9 x10*3/uL (2.0-8.3); Neutrophils Percent Auto 78.5 % (45-73); Platelet Count 296 X10*3/uL (160-400); Red Blood Count 4.35 X10*6/uL (4.20-5.50); Red Cell Distribution Width 13.2 % (11.0-16.0); White Blood Count 15.1 X10*3/uL (4.8-10.8)
[2024-09-23 07:09] LABS: Anion Gap 15 (12-20); Blood Urea Nitrogen 11 mg/dL (9-16); Calcium 9.8 mg/dL (8.4-10.2); Carbon Dioxide 22 mmol/L (22-29); Chloride 101 mmol/L (96-108); Creatinine Clr Calc Pharmacy 157.6; Estimated Glomerular Filt Rate > 60; Sodium 134 mmol/L (135-145)
[2024-09-23 07:10] LABS: Estimated Average Glucose 263 mg/dL; Hemoglobin A1C 301.7551 umol/L; Hemoglobin A1c % 10.8 % (<6.0); Total Hemoglobin (HGBA1C) 3186.2487 umol/L
[2024-09-23 07:15] LABS: Glucose, Whole Blood 318 mg/dL (60-115)
[2024-09-23 07:35] LABS: Glucose Random 395 mg/dL (60-115)
[2024-09-23] MEDS: Tiotropium Bromide 2.5 mcg 1 PUFF/2.5 MCG MIST.INHAL 2 PUFF INHALE (07:35)
[2024-09-23] MEDS: Fluticasone/Vilanterol 200/25 BLST.W.DEV 1 PUFF INHALE (07:35)
[2024-09-23] MEDS: Insulin Lispro 100 UNIT/ML 3 ML VIAL SUBCUT ×8 (07:55→21:12)
[2024-09-23] MEDS: methylPREDNISolone Sod Succ 125 MG/2 ML VIAL 60 MG IVPUSH ×2 (07:58→16:22)
[2024-09-23] MEDS: Nicotine 14 MG PATCH.TD24 TRANSDERMA (07:59)
[2024-09-23] MEDS: 0.9 % Sodium Chloride Flush 3 ML SYRINGE IVFLUSH ×3 (08:00→21:13)
[2024-09-23 11:02] LABS: Glucose, Whole Blood 386 mg/dL (60-115)
[2024-09-23 11:22] LABS: Adenovirus PCR Not Detected (Not Detect.); Bordetella parapertussis PCR Not Detected (Not Detect.); Bordetella pertussis PCR Not Detected (Not Detect.); Chlamydia pneumoniae PCR Not Detected (Not Detect.); Coronavirus 229E PCR Not Detected (Not Detect.); Coronavirus HKU1 PCR Not Detected (Not Detect.); Coronavirus NL63 PCR Not Detected (Not Detect.); Coronavirus OC43 PCR Not Detected (Not Detect.); Human metapneumovirus PCR Not Detected (Not Detect.); Influenza A PCR Not Detected (Not Detect.); Influenza B PCR Not Detected (Not Detect.); Mycoplasma pneumoniae PCR Not Detected (Not Detect.); Parainfluenza 1 PCR Not Detected (Not Detect.); Parainfluenza 2 PCR Not Detected (Not Detect.); Parainfluenza 3 PCR Not Detected (Not Detect.); Parainfluenza 4 PCR Not Detected (Not Detect.); RSV PCR Not Detected (Not Detect.); Rhino/Enterovirus PCR Not Detected (Not Detect.)
[2024-09-23 11:23] LABS: Influenza A H1 PCR Not Detected (Not Detect.); Influenza A H1-2009 PCR Not Detected (Not Detect.); Influenza A H3 PCR Not Detected (Not Detect.); SARS-CoV-2 PCR Not Detected (Not Detect.)
--- NOTE | 2024-09-23 13:05 | P.PNIM_ITS ---
Subjective Subjective Date of Service: 09/23/24 Interval History: Remains short of breath. Minimal change since admission. Review of Systems Denies chest pain Denies shortness of breath Denies nausea vomiting diarrhea Denies fever chills Physical Exam 2 Vital Signs: Vital Signs: Last Vital Signs Temp 98.1 F 09/23/24 06:59 Pulse 129 H 09/23/24 11:16 Resp 24 H 09/23/24 11:16 BP 159/92 H 09/23/24 06:59 Pulse Ox 98 09/23/24 06:59 O2 Del Method Room Air 09/23/24 06:59 BMI result Body Mass Index 54.1 Const: Other: Awake alert no acute distress Resp: Other: Dense expiratory wheezes throughout. Good aeration to bases Cardio: Other: No S4; positive S1-S2; no S3 murmurs rubs or gallops GI: Other: Soft nontender nondistended normoactive bowel sounds Extrem: Other: No edema bilaterally Objective Data Active Medications Acetaminophen (Acetaminophen 325 Mg Tablet) 650 mg PO Q6H PRN PRN Reason: Pain, Mild 1-3,fever,headache Albuterol/Ipratropium (Albuterol/Iprat 2.5/0.5mg 3 Ml Ampul.Neb) 3 ml INHALE RQ4H WHILE AWAKE [facility] Last Admin: 09/23/24 11:16 Dose: 3 ml Documented By: CAMERON Albuterol/Ipratropium (Albuterol/Iprat 2.5/0.5mg 3 Ml Ampul.Neb) 3 ml INHALE Q4H PRN PRN Reason: Wheezing Last Admin: 09/23/24 05:19 Dose: 3 ml Documented By: RICK Benzonatate (Benzonatate 100 Mg Capsule) 100 mg PO TID PRN PRN Reason: Cough Last Admin: 09/23/24 05:12 Dose: 100 mg Documented By: GARRICK-CONNCammie Calcium Carbonate (Calcium Carbonate 750 Mg Tab.Chew) 750 mg PO Q4H PRN PRN Reason: Heartburn Dextrose (Dextrose 50 % 25 Gm/50 Ml Syringe) 25 gm IVPUSH Q15M PRN; Protocol PRN Reason: per Hypoglycemia Standing Ord. Enoxaparin Sodium (Enoxaparin Sodium 40 Mg/0.4 Ml Syringe) 40 mg SUBCUT Q24H [facility] Last Admin: 09/22/24 16:26 Dose: 40 mg Documented By: GENEVIEVE Fluticasone/Vilanterol (Fluticasone/Vilanterol 200/25 Blst.W.Dev) 1 puff INHALE RDAILY [facility] Last Admin: 09/23/24 07:35 Dose: 1 puff Documented By: CAMERON Glucose (Glucose Gel 15 Gm Gel..Gram.) 15 gm PO Q15M PRN; Protocol PRN Reason: per Hypoglycemia Standing Ord. Guaifenesin/Codeine Phosphate (Guaifen/Codeine Sf 200/20/10ml 10 Ml Liquid) 10 ml PO Q4H PRN PRN Reason: Cough Last Admin: 09/23/24 11:32 Dose: 10 ml Documented By: GRANT Azithromycin 500 mg/ Sodium (Chloride) 250 mls @ 125 mls/hr IV Q24H [facility] Insulin Glargine (Insulin Glargine,Hum.Rec.Anlog 100 Unit/Ml 10 Ml Vial) 20 unit SUBCUT BEDTIME [facility] Last Admin: 09/22/24 21:07 Dose: 20 unit Documented By: STERLING Insulin Human Lispro (Insulin Lispro 100 Unit/Ml 3 Ml Vial) 0 unit SUBCUT QIDACHS [facility]; Protocol Last Admin: 09/23/24 11:31 Dose: 10 unit Documented By: GRANT Insulin Human Lispro (Insulin Lispro 100 Unit/Ml 3 Ml Vial) 5 unit SUBCUT QIDACHS [facility] Last Admin: 09/23/24 11:31 Dose: 5 unit Documented By: GRANT Magnesium Hydroxide (Milk Of Magnesia 30 Ml Oral.Susp) 30 ml PO DAILY PRN PRN Reason: Constipation Melatonin (Melatonin 3 Mg Tablet) 6 mg PO BEDTIME PRN PRN Reason: Insomnia Methylprednisolone Sodium Succinate (Methylprednisolone Sod Succ 125 Mg/2 Ml Vial) 60 mg IVPUSH Q6H [facility] Last Admin: 09/23/24 07:58 Dose: 60 mg Documented By: GRANT Nicotine (Nicotine 14 Mg Patch.Td24) 14 mg TRANSDERMA DAILY [facility] Last Admin: 09/23/24 07:59 Dose: 14 mg Documented By: GRANT Sodium Chloride (0.9 % Sodium Chloride Flush 3 Ml Syringe) 3 ml IVFLUSH QSHIFT [facility] Last Admin: 09/23/24 08:00 Dose: 3 ml Documented By: GRANT Tiotropium [place] (Tiotropium [place] 2.5 Mcg 1 Puff/2.5 Mcg Mist.Inhal) 2 puff INHALE RDAILY [facility] Last Admin: 09/23/24 07:35 Dose: 2 puff Documented By: CAMERON Labs 09/23/24 05:58 09/23/24 05:58 Labs: Laboratory Results - last 24 hr 09/22/24 09/22/24 09/22/24 11:49 16:08 16:44 MCV MCH MCHC RDW Plt Count MPV Immature Gran % (Auto) Neut % (Auto) Lymph % (Auto) [place] % (Auto) Eos % (Auto) Baso % (Auto) Lymph # (Auto) [place] # (Auto) Eos # (Auto) Baso # (Auto) Abs Immat Gran (auto) Absolute Neuts (auto) Absolute Nucleated RBC Nucleated RBC % (auto) VBG pH 7.40 VBG pCO2 32 VBG pO2 48 VBG HCO3 20 L VBG O2 Saturation 74.0 VBG Base Excess -3.1 Anion Gap Estim Creat Clear Calc Estimated GFR POC Glucose Random Glucose Estimat Average Glucose Hemoglobin A1c % Calcium Alkaline Phosphatase 107 Respiratory Panel Hoff Adenovirus (Rapid PCR) B.pert (TEM-PCR) B.parapertussis DNA PCR C. pneumoniae DNA (PCR) Coronavirus OC43 (PCR) Coronavirus HKU1 (PCR) Coronavirus 229E (PCR) Coronavirus NL63 (PCR) Human Metapneumovir PCR Influenza A (RT-PCR) Influenza A (H1) PCR Influ A (H1/09) PCR Influenza A (H3) PCR Influenza Type A (PCR) NEGATIVE Influenza B (RT-PCR) Influenza Type B (PCR) NEGATIVE M. pneumoniae (PCR) Parainfluenza 1 (PCR) Parainfluenza 2 (PCR) Parainfluenza 3 (PCR) Parainfluenza 4 (PCR) RSV (PCR) RSV RNA Qual (PCR) NEGATIVE Entero/Rhino (PCR) SARS-CoV-2 RNA (RT-PCR) NEGATIVE 09/22/24 09/22/24 09/22/24 16:45 17:05 18:19 MCV MCH MCHC RDW Plt Count MPV Immature Gran % (Auto) Neut % (Auto) Lymph % (Auto) [place] % (Auto) Eos % (Auto) Baso % (Auto) Lymph # (Auto) [place] # (Auto) Eos # (Auto) Baso # (Auto) Abs Immat Gran (auto) Absolute Neuts (auto) Absolute Nucleated RBC Nucleated RBC % (auto) VBG pH VBG pCO2 VBG pO2 VBG HCO3 VBG O2 Saturation VBG Base Excess Anion Gap Estim Creat Clear Calc Estimated GFR POC Glucose 516 H* 541 H* Random Glucose Estimat Average Glucose Hemoglobin A1c % Calcium Alkaline Phosphatase Respiratory Panel Hoff See Note Adenovirus (Rapid PCR) Not Detected B.pert (TEM-PCR) Not Detected B.parapertussis DNA PCR Not Detected C. pneumoniae DNA (PCR) Not Detected Coronavirus OC43 (PCR) Not Detected Coronavirus HKU1 (PCR) Not Detected Coronavirus 229E (PCR) Not Detected Coronavirus NL63 (PCR) Not Detected Human Metapneumovir PCR Not Detected Influenza A (RT-PCR) Not Detected Influenza A (H1) PCR Not Detected Influ A (H1/09) PCR Not Detected Influenza A (H3) PCR Not Detected Influenza Type A (PCR) Influenza B (RT-PCR) Not Detected Influenza Type B (PCR) M. pneumoniae (PCR) Not Detected Parainfluenza 1 (PCR) Not Detected Parainfluenza 2 (PCR) Not Detected Parainfluenza 3 (PCR) Not Detected Parainfluenza 4 (PCR) Not Detected RSV (PCR) Not Detected RSV RNA Qual (PCR) Entero/Rhino (PCR) Not Detected SARS-CoV-2 RNA (RT-PCR) Not Detected 09/22/24 09/22/24 09/22/24 19:05 20:29 21:54 MCV MCH MCHC RDW Plt Count MPV Immature Gran % (Auto) Neut % (Auto) Lymph % (Auto) [place] % (Auto) Eos % (Auto) Baso % (Auto) Lymph # (Auto) [place] # (Auto) Eos # (Auto) Baso # (Auto) Abs Immat Gran (auto) Absolute Neuts (auto) Absolute Nucleated RBC Nucleated RBC % (auto) VBG pH VBG pCO2 VBG pO2 VBG HCO3 VBG O2 Saturation VBG Base Excess Anion Gap Estim Creat Clear Calc Estimated GFR POC Glucose 514 H* 467 H* 414 H* Random Glucose Estimat Average Glucose Hemoglobin A1c % Calcium Alkaline Phosphatase Respiratory Panel [place] Adenovirus (Rapid PCR) B.pert (TEM-PCR) B.parapertussis DNA PCR C. pneumoniae DNA (PCR) Coronavirus OC43 (PCR) Coronavirus HKU1 (PCR) Coronavirus 229E (PCR) Coronavirus NL63 (PCR) Human Metapneumovir PCR Influenza A (RT-PCR) Influenza A (H1) PCR Influ A (H1/09) PCR Influenza A (H3) PCR Influenza Type A (PCR) Influenza B (RT-PCR) Influenza Type B (PCR) M. pneumoniae (PCR) Parainfluenza 1 (PCR) Parainfluenza 2 (PCR) Parainfluenza 3 (PCR) Parainfluenza 4 (PCR) RSV (PCR) RSV RNA Qual (PCR) Entero/Rhino (PCR) SARS-CoV-2 RNA (RT-PCR) 09/23/24 09/23/24 09/23/24 05:58 07:09 10:59 MCV 84.8 MCH 28.3 MCHC 33.3 RDW 13.2 Plt Count 296 MPV 11.6 Immature Gran % (Auto) 1.0 H Neut % (Auto) 78.5 H Lymph % (Auto) 13.7 L [place] % (Auto) 6.6 Eos % (Auto) 0.0 Baso % (Auto) 0.2 Lymph # (Auto) 2.1 [place] # (Auto) 1.0 Eos # (Auto) 0.0 Baso # (Auto) 0.0 Abs Immat Gran (auto) 0.15 H Absolute Neuts (auto) 11.9 H Absolute Nucleated RBC 0.000 Nucleated RBC % (auto) 0.0 VBG pH VBG pCO2 VBG pO2 VBG HCO3 VBG O2 Saturation VBG Base Excess Anion Gap 15 Estim Creat Clear Calc 157.6 Estimated GFR > 60 POC Glucose 318 H 386 H* Random Glucose 395 H* Estimat Average Glucose 263 Hemoglobin A1c % 10.8 H Calcium 9.8 D Alkaline Phosphatase Respiratory Panel [place] Adenovirus (Rapid PCR) B.pert (TEM-PCR) B.parapertussis DNA PCR C. pneumoniae DNA (PCR) Coronavirus OC43 (PCR) Coronavirus HKU1 (PCR) Coronavirus 229E (PCR) Coronavirus NL63 (PCR) Human Metapneumovir PCR Influenza A (RT-PCR) Influenza A (H1) PCR Influ A (H1/09) PCR Influenza A (H3) PCR Influenza Type A (PCR) Influenza B (RT-PCR) Influenza Type B (PCR) M. pneumoniae (PCR) Parainfluenza 1 (PCR) Parainfluenza 2 (PCR) Parainfluenza 3 (PCR) Parainfluenza 4 (PCR) RSV (PCR) RSV RNA Qual (PCR) Entero/Rhino (PCR) SARS-CoV-2 RNA (RT-PCR) Assessment and Plan (1) Asthma with acute exacerbation: Status: Acute (2) COPD exacerbation: Status: Acute (3) Type 2 diabetes mellitus: Status: Acute Plan 44-year-old female with history of asthma/COPD overlap, hypertension, insulin- dependent type 2 diabetes who is morbidly obese with BMI greater than 50 for who is a current 1/2 pack per day cigarette smoke admitted for further evaluation management of COPD exacerbation. 1.Acute asthma/COPD exacerbation -methylprednisolone 60 mgq6h -duoNebs q.4h while awake, albuterol p.r.n. -ceftriaxone/azithromycin (sputum) -continue maintenance inhalers 2.Insulin-dependent type 2 diabetes -poor control on current therapies secondary to steroids -add Lantus 10 mg in a.m.. .. Adjust as indicated -diabetic diet -add therapies as clinically indicated 3.Hypertension -elevated since admission -add losartan 50 mg daily -adjust as indicated Lovenox Full code Patient requires ongoing hospitalization for IV antibiotics and steroids to treat acute asthma exacerbation Quality Stroke Does the patient have a stroke diagnosis?: No VTE Prior VTE?: No VTE Risk Level:: Medical - moderate - high VTE Device Contraindication: Treatment Not Indicated VTE Drug Contraindication: N/A - Med Ordered
[2024-09-23] MEDS: Azithromycin 500 MG in 0.9 % Sodium Chloride 250 ML 125 MG IV ×2 (13:07→16:20)
--- NOTE | 2024-09-23 13:23 | MHC.CM.PN ---
PATIENT LIVES AT HOME W/ S.O. AND 3 CHILDREN AGES 15-21. FUNCTIONALLY INDEPENDENT. DENIES USE OF SERVICES. HAS A NEBULIZER. NO PCP - BROCHURE PROVIDED. COMPLETED HCP NAMING [facility]. DP: HOME SELF CARE, FAMILY TRANSPORT. CM WILL CONTINUE TO FOLLOW.
--- NOTE | 2024-09-23 13:52 | PC.NURSE ---
Pt IV (L AC #20) infiltrated - two nurses attempted twice with no success. No ICU nurse available to assist. aware.
--- NOTE | 2024-09-23 14:09 | PC.NURSE ---
Unable to place IV x 2 attempts, Primary RN notified.
[2024-09-23] MEDS: Losartan Potassium 50 MG TABLET PO (14:10)
[2024-09-23] MEDS: Insulin Glargine,Hum.rec.anlog 100 UNIT/ML 10 ML VIAL 10 UNIT SUBCUT (14:10)
[2024-09-23] MEDS: TiZANidine HCL 4 MG TABLET PO ×2 (14:42→21:11)
[2024-09-23] MEDS: Butalb/Acetamin/Caff 50/325/40 TABLET 1 TAB PO ×2 (14:42→21:39)
--- NOTE | 2024-09-23 15:44 | HO.MIDLINE ---
Midline Insertion MIDLINE INSERTION Diagnosis: pneumonia Indication: IV antibiotics and steroids Pertinent Labs: Reviewed Technique: Using sterile technique including cap and mask, glove and drape, the the right arm was prepped and draped in the usual sterile fashion of full barrier technique with CHG. Using ultrasound guidance, the right basilic vein access was obtained in a single attempt by this RN. a 20 guage 8 cm Non-PASV Midline was positioned. The procedure was performed in 272. Ultrasound was used to document vein patency and for needle entry. A formal ultrasound picture was recorded. Vascular Business Office Manager has released the line for use and it is currently dressed with a StatLock, Tegaderm, and CHG disc. Verification has been performed for blood return and line patency. Arm Circumference: 53 cm Equipment: BARD PowerGlide ST Midline Catheter Catheter Type: 20 guage 8 cm Non-PASV Midline Lot #: [id number]
[2024-09-23 16:11] LABS: Glucose, Whole Blood 407 mg/dL (60-115)
[2024-09-23] MEDS: Enoxaparin Sodium 40 MG/0.4 ML SYRINGE SUBCUT (16:52)
[2024-09-23 20:29] LABS: Glucose, Whole Blood 434 mg/dL (60-115)
[2024-09-23] MEDS: traZODone HCL 100 MG TABLET 200 MG PO (21:10)
[2024-09-23] MEDS: Insulin Regular, Human 100 UNIT/ML 10 ML VIAL 10 UNIT IVPUSH (21:12)
[2024-09-23] MEDS: Insulin Glargine,Hum.rec.anlog 100 UNIT/ML 10 ML VIAL 20 UNIT SUBCUT (21:13)
[2024-09-23] MEDS: 0.9 % Sodium Chloride Flush 10 ML SYRINGE 5 ML IVFLUSH (21:14)
[2024-09-23] MEDS: Milk of Magnesia 30 ML ORAL.SUSP PO (21:24)
[2024-09-24] VITALS (9 sets, daily range): BP systolic 112–131; BP diastolic 56–79; PULSE 85–104; RESP 16–20; TEMP 36.6–37.1; O2SAT 91–98
[2024-09-24 01:36] LABS: Glucose, Whole Blood 364 mg/dL (60-115)
[2024-09-24] MEDS: guaiFEN/Codeine SF 200/20/10ML 10 ML LIQUID PO ×5 (01:55→21:37)
[2024-09-24] MEDS: Albuterol/Iprat 2.5/0.5MG 3 ML AMPUL.NEB INHALE ×6 (01:56→18:35)
[2024-09-24] MEDS: Magnesium Sulfate/H2O 2 GM/50 ML PIGGYBACK IV (04:07)
[2024-09-24 07:01] LABS: Glucose, Whole Blood 325 mg/dL (60-115)
[2024-09-24] MEDS: Butalb/Acetamin/Caff 50/325/40 TABLET 1 TAB PO ×4 (07:29→21:19)
[2024-09-24] MEDS: TiZANidine HCL 4 MG TABLET PO ×3 (07:29→21:19)
[2024-09-24] MEDS: Benzonatate 100 MG CAPSULE PO ×4 (07:29→21:19)
[2024-09-24] MEDS: predniSONE 20 MG TABLET 40 MG PO (07:29)
[2024-09-24] MEDS: Losartan Potassium 50 MG TABLET PO (07:29)
[2024-09-24] MEDS: Nicotine 14 MG PATCH.TD24 TRANSDERMA (07:30)
[2024-09-24] MEDS: Insulin Lispro 100 UNIT/ML 3 ML VIAL SUBCUT ×8 (07:30→21:20)
[2024-09-24] MEDS: Insulin Glargine,Hum.rec.anlog 100 UNIT/ML 10 ML VIAL 10 UNIT SUBCUT (07:31)
[2024-09-24] MEDS: Tiotropium Bromide 2.5 mcg 1 PUFF/2.5 MCG MIST.INHAL 2 PUFF INHALE (07:45)
[2024-09-24] MEDS: Fluticasone/Vilanterol 200/25 BLST.W.DEV 1 PUFF INHALE (07:45)
[2024-09-24] MEDS: methylPREDNISolone Sod Succ 40 MG/ML VIAL IVPUSH (09:45)
[2024-09-24] MEDS: Throat Lozenge, Medicated LOZENGE 1 LOZENGE MUCOUS MEM ×2 (09:45→15:17)
[2024-09-24] MEDS: guaiFENesin LA 600 MG TAB.ER.12H PO ×2 (09:45→21:19)
[2024-09-24] MEDS: 0.9 % Sodium Chloride Flush 10 ML SYRINGE 5 ML IVFLUSH (09:48)
[2024-09-24 11:14] LABS: Glucose, Whole Blood 407 mg/dL (60-115)
--- NOTE | 2024-09-24 14:40 | P.PNIM_ITS ---
Subjective Subjective Date of Service: 09/24/24 Interval History: Seen and examined this morning Follow-up for asthma/COPD exacerbation Patient reports worsening shortness of breath this morning, ongoing cough. doesn't feel prednisone is as effective as iv solu medrol Review of Systems Review of Systems: Yes all other systems are reviewed and are negative Constitutional Constitutional: Denies chills and Denies fever(s) Physical Exam 2 Vital Signs: Vital Signs: Last Vital Signs Temp 97.8 F 09/24/24 06:46 Pulse 85 09/24/24 11:50 Resp 18 09/24/24 11:50 BP 131/79 09/24/24 06:46 Pulse Ox 98 09/24/24 06:46 O2 Del Method Room Air 09/24/24 06:46 BMI result Body Mass Index 54.1 Const: General: cooperative, no acute distress, alert and awake Nutritional Appearance: obese Orientation/consciousness: patient oriented x3 Resp: Other: diffuse b/l wheeze Effort & Inspection: normal respiratory effort, able to speak in complete sentences, no respiratory distress and no use of accessory muscles Cardio: Rate: regular rate GI: Inspection: No distended Palpation (GI): Soft to palpation Neuro: General: patient oriented x3, moves all extremities and CN's II-XI intact bilaterally Objective Data Active Medications Acetaminophen (Acetaminophen 325 Mg Tablet) 650 mg PO Q6H PRN PRN Reason: Pain, Mild 1-3,fever,headache Acetaminophen/Butalbital/Caffeine (Butalb/Acetamin/Caff 50/325/40 Tablet) 1 tab PO Q4H PRN PRN Reason: Headache Last Admin: 09/24/24 11:25 Dose: 1 tab Documented By: KITTY Albuterol/Ipratropium (Albuterol/Iprat 2.5/0.5mg 3 Ml Ampul.Neb) 3 ml INHALE RQ4H WHILE AWAKE [facility] Last Admin: 09/24/24 11:50 Dose: 3 ml Documented By: ALVIN Albuterol/Ipratropium (Albuterol/Iprat 2.5/0.5mg 3 Ml Ampul.Neb) 3 ml INHALE Q4H PRN PRN Reason: Wheezing Last Admin: 09/24/24 01:56 Dose: 3 ml Documented By: RICHARD Benzocaine (Throat Lozenge, Medicated Lozenge) 1 lozenge MUCOUS MEM Q2H PRN PRN Reason: Sore Throat Last Admin: 09/24/24 09:45 Dose: 1 lozenge Documented By: KITTY Benzonatate (Benzonatate 100 Mg Capsule) 100 mg PO TID PRN PRN Reason: Cough Last Admin: 09/24/24 11:25 Dose: 100 mg Documented By: KITTY Calcium Carbonate (Calcium Carbonate 750 Mg Tab.Chew) 750 mg PO Q4H PRN PRN Reason: Heartburn Dextrose (Dextrose 50 % 25 Gm/50 Ml Syringe) 25 gm IVPUSH Q15M PRN; Protocol PRN Reason: per Hypoglycemia Standing Ord. Enoxaparin Sodium (Enoxaparin Sodium 40 Mg/0.4 Ml Syringe) 40 mg SUBCUT Q24H COUNT INCLUDES THE [facility] Last Admin: 09/23/24 16:52 Dose: 40 mg Documented By: GRANT Fluticasone/Vilanterol (Fluticasone/Vilanterol 200/25 Blst.W.Dev) 1 puff INHALE RDAILY COUNT INCLUDES THE [facility] Last Admin: 09/24/24 07:45 Dose: 1 puff Documented By: CAMERON Glucose (Glucose Gel 15 Gm Gel..Gram.) 15 gm PO Q15M PRN; Protocol PRN Reason: per Hypoglycemia Standing Ord. Guaifenesin (Guaifenesin [place] 600 Mg Tab.Er.12h) 600 mg PO BID COUNT INCLUDES THE [facility] Last Admin: 09/24/24 09:45 Dose: 600 mg Documented By: KITTY Guaifenesin/Codeine Phosphate (Guaifen/Codeine Sf 200/20/10ml 10 Ml Liquid) 10 ml PO Q4H PRN PRN Reason: Cough Last Admin: 09/24/24 11:25 Dose: 10 ml Documented By: KITTY Azithromycin 500 mg/ Sodium (Chloride) 250 mls @ 125 mls/hr IV Q24H COUNT INCLUDES THE [facility] Last Infusion: 09/23/24 18:29 Dose: Infused Documented By: GRANT Insulin Glargine (Insulin Glargine,Hum.Rec.Anlog 100 Unit/Ml 10 Ml Vial) 20 unit SUBCUT BEDTIME COUNT INCLUDES THE [facility] Last Admin: 09/23/24 21:13 Dose: 20 unit Documented By: STERLNIG Insulin Glargine (Insulin Glargine,Hum.Rec.Anlog 100 Unit/Ml 10 Ml Vial) 10 unit SUBCUT DAILY COUNT INCLUDES THE [facility] Last Admin: 09/24/24 07:31 Dose: 10 unit Documented By: KITTY Insulin Human Lispro (Insulin Lispro 100 Unit/Ml 3 Ml Vial) 0 unit SUBCUT QIDACHS COUNT INCLUDES THE [facility]; Protocol Last Admin: 09/24/24 11:25 Dose: 10 unit Documented By: KITTY Insulin Human Lispro (Insulin Lispro 100 Unit/Ml 3 Ml Vial) 5 unit SUBCUT QIDACHS COUNT INCLUDES THE [facility] Last Admin: 09/24/24 11:25 Dose: 5 unit Documented By: KITTY Losartan Potassium (Losartan Potassium 50 Mg Tablet) 50 mg PO DAILY COUNT INCLUDES THE [facility]; Protocol Last Admin: 09/24/24 07:29 Dose: 50 mg Documented By: KITTY Magnesium Hydroxide (Milk Of Magnesia 30 Ml Oral.Susp) 30 ml PO DAILY PRN PRN Reason: Constipation Last Admin: 09/23/24 21:24 Dose: 30 ml Documented By: STERLING Melatonin (Melatonin 3 Mg Tablet) 6 mg PO BEDTIME PRN PRN Reason: Insomnia Methylprednisolone Sodium Succinate (Methylprednisolone Sod Succ 40 Mg/Ml Vial) 40 mg IVPUSH Q8H COUNT INCLUDES THE [facility] Last Admin: 09/24/24 09:45 Dose: 40 mg Documented By: KITTY Nicotine (Nicotine 14 Mg Patch.Td24) 14 mg TRANSDERMA DAILY COUNT INCLUDES THE [facility] Last Admin: 09/24/24 07:30 Dose: 14 mg Documented By: KITTY Sodium Chloride (0.9 % Sodium Chloride Flush 3 Ml Syringe) 3 ml IVFLUSH QSHIFT COUNT INCLUDES THE [facility] Last Admin: 09/24/24 09:49 Dose: Not Given Documented By: KITTY Non-Admin Reason: Previously Administered Sodium Chloride (0.9 % Sodium Chloride Flush 10 Ml Syringe) 5 ml IVFLUSH TID COUNT INCLUDES THE [facility] Last Admin: 09/24/24 09:48 Dose: 5 ml Documented By: KITTY Tiotropium [place] (Tiotropium [place] 2.5 Mcg 1 Puff/2.5 Mcg Mist.Inhal) 2 puff INHALE RDAILY COUNT INCLUDES THE [facility] Last Admin: 09/24/24 07:45 Dose: 2 puff Documented By: CAMERON Tizanidine HCl (Tizanidine Hcl 4 Mg Tablet) 4 mg PO TID COUNT INCLUDES THE [facility] Last Admin: 09/24/24 07:29 Dose: 4 mg Documented By: KITTY Trazodone HCl (Trazodone Hcl 100 Mg Tablet) 200 mg PO BEDTIME COUNT INCLUDES THE [facility] Last Admin: 09/23/24 21:10 Dose: 100 mg Documented By: STERLING Comments: patient takes 100mg at home Labs 09/23/24 05:58 09/23/24 05:58 Labs: Laboratory Results - last 24 hr 09/23/24 09/23/24 09/24/24 16:06 20:20 01:32 POC Glucose 407 H* 434 H* 364 H* 09/24/24 09/24/24 06:48 11:11 POC Glucose 325 H 407 H* Assessment and Plan (1) Type 2 diabetes mellitus: Status: Acute Plan 44-year-old female with history of asthma/COPD overlap, hypertension, insulin- dependent type 2 diabetes who is morbidly obese with BMI greater than 50 for who is a current 1/2 pack per day cigarette smoke admitted for further evaluation management of COPD exacerbation. Acute asthma/COPD exacerbation RPP negative. Wean steroids Continue duoNebs q.4h while awake, albuterol p.r.n. Continue azithromycin continue maintenance inhalers Insulin-dependent type 2 diabetes with hyperglycemia HbA1c 10.8 due to medication noncompliance and steroid use ?not on baseline meds, pt reports no PCP. per [facility] notes - pt was d/c with 30 units of Lantus, metformin and Trulicity in November 2023 Continue Lantus 20 units at bedtime, 10 mg in the a.m. Continue scheduled premeal insulin Continue insulin sliding scale diabetic diet Hypertension Started on losartan 50 mg daily Tobacco dependence Smoking cessation advised Morbid obesity BMI 54.1 Weight loss encouraged Lovenox Full code Patient requires ongoing hospitalization for IV antibiotics and steroids to treat acute asthma exacerbation Quality Stroke Does the patient have a stroke diagnosis?: No VTE Prior VTE?: No VTE Risk Level:: Medical - moderate - high VTE Device Contraindication: Treatment Not Indicated VTE Drug Contraindication: N/A - Med Ordered
[2024-09-24] MEDS: Azithromycin 500 MG in 0.9 % Sodium Chloride 250 ML 125 MG IV (15:18)
[2024-09-24 16:46] LABS: Glucose, Whole Blood 376 mg/dL (60-115)
[2024-09-24] MEDS: Enoxaparin Sodium 40 MG/0.4 ML SYRINGE SUBCUT (16:52)
[2024-09-24 20:36] LABS: Glucose, Whole Blood 383 mg/dL (60-115)
[2024-09-24] MEDS: Insulin Glargine,Hum.rec.anlog 100 UNIT/ML 10 ML VIAL 20 UNIT SUBCUT (21:20)
[2024-09-24] MEDS: traZODone HCL 100 MG TABLET 200 MG PO (21:20)
[2024-09-24] MEDS: 0.9 % Sodium Chloride Flush 3 ML SYRINGE IVFLUSH (21:21)
--- NOTE | 2024-09-24 23:18 | PC.NURSE ---
Patients primary nurse Lisseth asked this typewriter assembly and parts inspector to try flushing patients midline because is not patent. Upon arrival patient stated that flushing was a problem from the beginning, nurses had to stretch her arm to flush. After multiple tries flushing failed , patient verbalized a slight discomfort in that area and wanted the line out. Midline removed intact with no problem. New IV site obtained, # 20 to right wrist.
--- NOTE | 2024-09-24 23:45 | PC.NURSE ---
Pt seen on bed alert and oriented, claimed still SOB when ambulating to the BR, relieved with rest. POC at bedtime= 383,Dr Patrick was updated, no additional coverage given. Pt claimed she only take 100 mg of Trazodone instead of 200mg, Dr. Patrick was made aware for order change. Midline was unable to flushed even with so many tries, ranch hand also tried but also failed,midline removed by Rose, Peripheral IVline access placed on the right wrist-20g, Dr. Patrick was also update.
[2024-09-25] VITALS (8 sets, daily range): BP systolic 131–140; BP diastolic 60–70; PULSE 84–97; RESP 16–20; TEMP 36.1–36.9; O2SAT 94–96
[2024-09-25] MEDS: methylPREDNISolone Sod Succ 40 MG/ML VIAL IVPUSH ×2 (00:12→12:31)
[2024-09-25] MEDS: Butalb/Acetamin/Caff 50/325/40 TABLET 1 TAB PO ×4 (05:07→21:03)
[2024-09-25] MEDS: guaiFEN/Codeine SF 200/20/10ML 10 ML LIQUID PO ×4 (05:07→21:05)
[2024-09-25 07:40] LABS: Glucose, Whole Blood 397 mg/dL (60-115)
[2024-09-25] MEDS: Insulin Lispro 100 UNIT/ML 3 ML VIAL SUBCUT ×8 (07:41→21:04)
[2024-09-25] MEDS: Albuterol/Iprat 2.5/0.5MG 3 ML AMPUL.NEB INHALE ×4 (08:15→19:51)
[2024-09-25] MEDS: Tiotropium Bromide 2.5 mcg 1 PUFF/2.5 MCG MIST.INHAL 2 PUFF INHALE (08:16)
[2024-09-25] MEDS: Fluticasone/Vilanterol 200/25 BLST.W.DEV 1 PUFF INHALE (08:16)
[2024-09-25] MEDS: guaiFENesin LA 600 MG TAB.ER.12H PO ×2 (08:48→21:03)
[2024-09-25] MEDS: Losartan Potassium 50 MG TABLET PO (08:49)
[2024-09-25] MEDS: TiZANidine HCL 4 MG TABLET PO ×3 (08:50→21:03)
[2024-09-25] MEDS: Benzonatate 100 MG CAPSULE PO ×2 (08:50→21:02)
[2024-09-25] MEDS: Nicotine 14 MG PATCH.TD24 TRANSDERMA (08:50)
[2024-09-25] MEDS: Insulin Glargine,Hum.rec.anlog 100 UNIT/ML 10 ML VIAL 10 UNIT SUBCUT (08:51)
[2024-09-25] MEDS: 0.9 % Sodium Chloride Flush 3 ML SYRINGE IVFLUSH ×3 (08:59→21:04)
[2024-09-25 11:22] LABS: Glucose, Whole Blood 369 mg/dL (60-115)
--- NOTE | 2024-09-25 15:01 | MHC.CM.PN ---
PER MD ROUNDS, PT EXPECTED TO DC TOMORROW DCP: HOME VIA PRIVATE TRANSPORT
[2024-09-25] MEDS: Azithromycin 500 MG in 0.9 % Sodium Chloride 250 ML 125 MG IV (15:29)
[2024-09-25 16:01] LABS: Glucose, Whole Blood 347 mg/dL (60-115)
[2024-09-25] MEDS: Enoxaparin Sodium 40 MG/0.4 ML SYRINGE SUBCUT (16:09)
--- NOTE | 2024-09-25 16:12 | HO.PM.IMPN ---
Subjective Subjective Date of Service: 09/25/24 Interval History: Seen and examined this morning Persistent wheezing/dyspnea/cough No fever Review of Systems Review of Systems: Yes all other systems are reviewed and are negative Constitutional Constitutional: Denies chills and Denies fever(s) Physical Exam Vital Signs: Vital Signs: Last Vital Signs Temp 97.1 F 09/25/24 15:24 Pulse 95 09/25/24 15:34 Resp 20 09/25/24 15:34 BP 133/68 09/25/24 15:24 Pulse Ox 95 09/25/24 15:24 O2 Del Method Room Air 09/25/24 15:24 BMI result Body Mass Index 54.1 Const: General: cooperative, no acute distress, alert and awake Nutritional Appearance: obese Orientation/consciousness: patient oriented x3 Resp: Other: diffuse b/l wheeze Effort & Inspection: normal respiratory effort, able to speak in complete sentences, no respiratory distress and no use of accessory muscles Cardio: Rate: regular rate GI: Inspection: No distended Palpation (GI): Soft to palpation Neuro: General: patient oriented x3, moves all extremities and CN's II-XI intact bilaterally Objective Data Active Medications Acetaminophen (Acetaminophen 325 Mg Tablet) 650 mg PO Q6H PRN PRN Reason: Pain, Mild 1-3,fever,headache Acetaminophen/Butalbital/Caffeine (Butalb/Acetamin/Caff 50/325/40 Tablet) 1 tab PO Q4H PRN PRN Reason: Headache Last Admin: 09/25/24 12:31 Dose: 1 tab Documented By: KITTY Albuterol/Ipratropium (Albuterol/Iprat 2.5/0.5mg 3 Ml Ampul.Neb) 3 ml INHALE RQ4H WHILE AWAKE LUIZ Last Admin: 09/25/24 15:33 Dose: 3 ml Documented By: ALVIN Albuterol/Ipratropium (Albuterol/Iprat 2.5/0.5mg 3 Ml Ampul.Neb) 3 ml INHALE Q4H PRN PRN Reason: Wheezing Last Admin: 09/24/24 01:56 Dose: 3 ml Documented By: RICHARD Benzocaine (Throat Lozenge, Medicated Lozenge) 1 lozenge MUCOUS MEM Q2H PRN PRN Reason: Sore Throat Last Admin: 09/24/24 15:17 Dose: 1 lozenge Documented By: KITTY Benzonatate (Benzonatate 100 Mg Capsule) 100 mg PO TID PRN PRN Reason: Cough Last Admin: 09/25/24 08:50 Dose: 100 mg Documented By: KITTY Calcium Carbonate (Calcium Carbonate 750 Mg Tab.Chew) 750 mg PO Q4H PRN PRN Reason: Heartburn Dextrose (Dextrose 50 % 25 Gm/50 Ml Syringe) 25 gm IVPUSH Q15M PRN; Protocol PRN Reason: per Hypoglycemia Standing Ord. Enoxaparin Sodium (Enoxaparin Sodium 40 Mg/0.4 Ml Syringe) 40 mg SUBCUT Q24H [facility] Last Admin: 09/25/24 16:09 Dose: 40 mg Documented By: KITTY Fluticasone/Vilanterol (Fluticasone/Vilanterol 200/25 Blst.W.Dev) 1 puff INHALE RDAILY [facility] Last Admin: 09/25/24 08:16 Dose: 1 puff Documented By: ALVIN Glucose (Glucose Gel 15 Gm Gel..Gram.) 15 gm PO Q15M PRN; Protocol PRN Reason: per Hypoglycemia Standing Ord. Guaifenesin (Guaifenesin La 600 Mg Tab.Er.12h) 600 mg PO BID [facility] Last Admin: 09/25/24 08:48 Dose: 600 mg Documented By: KITTY Guaifenesin/Codeine Phosphate (Guaifen/Codeine Sf 200/20/10ml 10 Ml Liquid) 10 ml PO Q4H PRN PRN Reason: Cough Last Admin: 09/25/24 12:31 Dose: 10 ml Documented By: KITTY Azithromycin 500 mg/ Sodium (Chloride) 250 mls @ 125 mls/hr IV Q24H [facility] Last Admin: 09/25/24 15:29 Dose: 125 mls/hr Documented By: KITTY Insulin Glargine (Insulin Glargine,Hum.Rec.Anlog 100 Unit/Ml 10 Ml Vial) 20 unit SUBCUT BEDTIME [facility] Last Admin: 09/24/24 21:20 Dose: 20 unit Documented By: KESHA Insulin Glargine (Insulin Glargine,Hum.Rec.Anlog 100 Unit/Ml 10 Ml Vial) 10 unit SUBCUT DAILY [facility] Last Admin: 09/25/24 08:51 Dose: 10 unit Documented By: KITTY Insulin Human Lispro (Insulin Lispro 100 Unit/Ml 3 Ml Vial) 0 unit SUBCUT QIDACHS [facility]; Protocol Last Admin: 09/25/24 16:10 Dose: 8 unit Documented By: KITTY Insulin Human Lispro (Insulin Lispro 100 Unit/Ml 3 Ml Vial) 5 unit SUBCUT QIDACHS [facility] Last Admin: 09/25/24 16:10 Dose: 5 unit Documented By: KITTY Losartan Potassium (Losartan Potassium 50 Mg Tablet) 50 mg PO DAILY [facility]; Protocol Last Admin: 09/25/24 08:49 Dose: 50 mg Documented By: KITTY Magnesium Hydroxide (Milk Of Magnesia 30 Ml Oral.Susp) 30 ml PO DAILY PRN PRN Reason: Constipation Last Admin: 09/23/24 21:24 Dose: 30 ml Documented By: GARRICK-VALE Melatonin (Melatonin 3 Mg Tablet) 6 mg PO BEDTIME PRN PRN Reason: Insomnia Methylprednisolone Sodium Succinate (Methylprednisolone Sod Succ 40 Mg/Ml Vial) 40 mg IVPUSH Q12H [facility] Last Admin: 09/25/24 12:31 Dose: 40 mg Documented By: KITTY Nicotine (Nicotine 14 Mg Patch.Td24) 14 mg TRANSDERMA DAILY [facility] Last Admin: 09/25/24 08:50 Dose: 14 mg Documented By: KITTY Sodium Chloride (0.9 % Sodium Chloride Flush 3 Ml Syringe) 3 ml IVFLUSH QSHIFT [facility] Last Admin: 09/25/24 15:30 Dose: 3 ml Documented By: KITTY Sodium Chloride (0.9 % Sodium Chloride Flush 10 Ml Syringe) 5 ml IVFLUSH TID [facility] Last Admin: 09/25/24 15:36 Dose: Not Given Documented By: KITTY Non-Admin Reason: Previously Administered Tiotropium [place] (Tiotropium [place] 2.5 Mcg 1 Puff/2.5 Mcg Mist.Inhal) 2 puff INHALE RDAILY [facility] Last Admin: 09/25/24 08:16 Dose: 2 puff Documented By: ALVIN Tizanidine HCl (Tizanidine Hcl 4 Mg Tablet) 4 mg PO TID [facility] Last Admin: 09/25/24 15:30 Dose: 4 mg Documented By: KITTY Trazodone HCl (Trazodone Hcl 100 Mg Tablet) 100 mg PO BEDTIME [facility] Last Admin: 09/24/24 21:38 Dose: Not Given Documented By: KESHA Non-Admin Reason: dose given Labs 09/23/24 05:58 09/23/24 05:58 Labs: Laboratory Results - last 24 hr 09/24/24 09/24/24 09/25/24 16:42 20:29 07:36 POC Glucose 376 H* 383 H* 397 H* 09/25/24 09/25/24 11:16 15:57 POC Glucose 369 H* 347 H Assessment and Plan (1) Asthma with acute exacerbation: Status: Acute Plan 44-year-old female with history of asthma/COPD overlap, hypertension, insulin-dependent type 2 diabetes who is morbidly obese with BMI greater than 50 for who is a current 1/2 pack per day cigarette smoke admitted for further evaluation management of COPD exacerbation. Acute asthma/COPD exacerbation RPP negative. Wean steroids Continue duoNebs q.4h while awake, albuterol p.r.n. Continue azithromycin continue maintenance inhalers Insulin-dependent type 2 diabetes with hyperglycemia HbA1c 10.8 due to medication noncompliance and steroid use not on baseline meds, pt reports no PCP. per [facility] notes - pt was d/c with 30 units of Lantus, metformin and Trulicity in November 2023 Continue Lantus 20 units at bedtime, 10 mg in the a.m. Continue scheduled premeal insulin Continue insulin sliding scale diabetic diet Hypertension Started on losartan 50 mg daily blood pressure controlled Tobacco dependence Smoking cessation advised Morbid obesity BMI 54.1 Weight loss encouraged Lovenox Full code Patient requires ongoing hospitalization for IV antibiotics and steroids to treat acute asthma exacerbation Quality Stroke Does the patient have a stroke diagnosis?: No VTE Prior VTE?: No VTE Risk Level:: Medical - moderate - high VTE Device Contraindication: Treatment Not Indicated VTE Drug Contraindication: N/A - Med Ordered
[2024-09-25 20:31] LABS: Glucose, Whole Blood 360 mg/dL (60-115)
[2024-09-25] MEDS: Insulin Glargine,Hum.rec.anlog 100 UNIT/ML 10 ML VIAL 20 UNIT SUBCUT (21:03)
[2024-09-25] MEDS: traZODone HCL 100 MG TABLET PO (21:03)
--- NOTE | 2024-09-25 23:49 | PC.NURSE ---
Pt seen on bed alert and oriented, still with generalized pain and FOSTER, no SOB when at rest, tolerating RA, LS dim, VS WNL, POC= 360, Dr. Patrick made aware, meds given.
[2024-09-26] MEDS: methylPREDNISolone Sod Succ 40 MG/ML VIAL IVPUSH (00:33)
[2024-09-26 03:00] VITALS: BP 139/65; PULSE 83; RESP 20; TEMP 36.1; O2SAT 96
[2024-09-26 07:14] VITALS: BP 129/67; PULSE 82; RESP 18; TEMP 37; O2SAT 95
[2024-09-26 07:17] LABS: Glucose, Whole Blood 447 mg/dL (60-115)
[2024-09-26] MEDS: Nicotine 14 MG PATCH.TD24 TRANSDERMA (07:41)
[2024-09-26] MEDS: guaiFEN/Codeine SF 200/20/10ML 10 ML LIQUID PO ×2 (07:41→11:45)
[2024-09-26] MEDS: metFORMIN HCl 500 MG TABLET PO (07:41)
[2024-09-26] MEDS: Losartan Potassium 50 MG TABLET PO (07:41)
[2024-09-26] MEDS: Benzonatate 100 MG CAPSULE PO (07:41)
[2024-09-26] MEDS: Insulin Lispro 100 UNIT/ML 3 ML VIAL SUBCUT ×5 (07:42→11:46)
[2024-09-26] MEDS: Albuterol/Iprat 2.5/0.5MG 3 ML AMPUL.NEB INHALE ×2 (07:42→12:29)
[2024-09-26] MEDS: TiZANidine HCL 4 MG TABLET PO (07:42)
[2024-09-26] MEDS: Insulin Glargine,Hum.rec.anlog 100 UNIT/ML 10 ML VIAL 10 UNIT SUBCUT (07:43)
[2024-09-26] MEDS: Butalb/Acetamin/Caff 50/325/40 TABLET 1 TAB PO ×2 (07:48→11:45)
[2024-09-26] MEDS: 0.9 % Sodium Chloride Flush 3 ML SYRINGE IVFLUSH (07:49)
[2024-09-26] MEDS: Tiotropium Bromide 2.5 mcg 1 PUFF/2.5 MCG MIST.INHAL 2 PUFF INHALE (09:02)
[2024-09-26] MEDS: Fluticasone/Vilanterol 200/25 BLST.W.DEV 1 PUFF INHALE (09:02)
[2024-09-26 09:06] VITALS: PULSE 90; RESP 16
[2024-09-26 11:06] LABS: Glucose, Whole Blood 321 mg/dL (60-115)
--- NOTE | 2024-09-26 12:18 | PM.DS ---
DS: Providers Provider Date of Service: 09/26/24 Date of admission: 09/22/24 16:14 Date of discharge: 09/26/24 Primary care physician: None Physician Attending physician on discharge: Alexia Granado Discharging clinician: Niurka Marcus DS: Diagnosis Discharge Diagnosis (1) Asthma with acute exacerbation: Status: Acute (2) Type 2 diabetes mellitus: Status: Acute DS: Summary Hospital Course Hospital Course: From H&P on the day of admission 44-year-old female with history of asthma/COPD overlap, hypertension, insulin-dependent type 2 diabetes who is morbidly obese with BMI greater than 50 for who is a current 1/2 pack per day cigarette smoker presented to the ED earlier today for evaluation of shortness of breath and wheezing with productive cough ongoing for 2 weeks and worsening. She has been using her albuterol inhaler up to every 15 minutes without much relief. She has no recent hospitalizations for her asthma or COPD and has never been intubated. She describes a chest tightness with inspiration and cough. Denies any fevers, chills, sore throat, congestion, abdominal pain, nausea, vomiting, diarrhea, urinary symptoms, orthopnea, lightheadedness, palpitations, chest pressure. In the ED, patient has been tachypneic to 29 and tachycardic. She has a leukocytosis of 13.6. Renal function and electrolyte levels normal. Glucose 318. ABG reassuring with pH 7.45, pCO2 36, bicarb 25. Troponin undetectable. CXR unremarkable. In the ED, was given 60 mg IV methylprednisolone, 1 g IV ceftriaxone, 500 mg Zithromax, 1 g magnesium, and multiple nebs/DuoNebs. Acute asthma/COPD exacerbation RPP negative. Treated with IV systemic steroids, breathing treatments and azithromycin. Slowly her breathing and wheezing improved. She feels like she is ready for discharge. Insulin-dependent type 2 diabetes with hyperglycemia HbA1c 10.8. due to medication noncompliance and steroid use. She has not been taking any in the past 2 years as she does not currently have a primary care provider. She feels that her blood sugars elevated only because of the use of steroids not due to a diagnosis of diabetes. She has been ?dealing with this for 14 years. ? She educated any use of both long-acting and short-acting insulin and she feels comfortable administering these medications as well as checking her blood sugar. She does not currently have a glucometer and has not been checking her blood sugar at home. Blood sugars have been elevated during hospitalization, she feels comfortable being discharged with current blood sugar levels as she feels they will improved significantly as she tapers off of steroids. She does not want to stay in the hospital for any further titration of medication or improvement in her blood sugar. She will be discharged home with Lantus, short-acting insulin for sliding scale as well as metformin which she has used before. She is encouraged to monitor her blood sugars before meals and at bedtime. If a.m. blood sugars less than 120 recommend decreasing Lantus by 5 units per day. Importance of obtaining primary care provider was discussed and she is in agreement. All baseline inhalers were refilled. Hypertension Blood pressure was noted to be elevated during hospital stay, Started on losartan 50 mg daily with adequate blood pressure control. Time Attestation Discharge Coordination Time (in mins): 36 Quality: Safe Use of Opioids Does Pt have an Active Cancer Diagnosis on the Problem List?: No Quality: Stroke Does the patient have a stroke diagnosis?: No Physical Exam Vital Signs: Vital Signs: Last Vital Signs Temp 98.6 F 09/26/24 07:14 Pulse 90 09/26/24 09:06 Resp 16 09/26/24 09:06 BP 129/67 09/26/24 07:14 Pulse Ox 95 09/26/24 07:14 O2 Del Method Room Air 09/26/24 07:14 BMI result Body Mass Index 54.1 Const: General: cooperative, no acute distress, alert and awake Nutritional Appearance: obese Orientation/consciousness: patient oriented x3 Resp: Other: wheezing improving Effort & Inspection: normal respiratory effort, able to speak in complete sentences, no respiratory distress and no use of accessory muscles Cardio: Rate: regular rate GI: Inspection: No distended Palpation (GI): Soft to palpation Neuro: General: patient oriented x3, moves all extremities and CN's II-XI intact bilaterally DS: Data Data Completed and Pending Labs on day of discharge: Laboratory Results - last 24 hr 09/25/24 09/25/24 09/26/24 15:57 20:23 07:10 POC Glucose 347 H 360 H* 447 H* 09/26/24 11:02 POC Glucose 321 H Discharge Plan Discharge Anticipated Discharge Date/Time: 09/26/24 12:24 Patient Disposition: Home, Self-Care Discharge Diagnosis: asthma/copd exacerbation Type 2 DM with hyperglycemia Referrals: Physician,None [Primary Care Provider] - 1 Week Discharge Medications: New losartan 50 mg Tablet 50 mg PO DAILY Qty: 90 0RF Protocol: Hold for SBP< HOLD for SBP < : 90 metformin 500 mg Tablet 500 mg PO BIDWM 90 Days Qty: 180 0RF (DME) FreeStyle Lite Strips Strip Qty: 100 0RF Rx Instructions: Test four times a day or as directed. (DME) blood-glucose meter [FreeStyle Lite Meter] Kit Qty: 1 0RF Rx Instructions: As Directed alcohol swabs Pads, Medicated 1 pad TOPICAL QIDACHS Qty: 100 0RF Rx Instructions: Use four times a day or as directed. insulin lispro [Humalog KwikPen Insulin] 100 unit/mL insulin pen See Rx Instructions .ROUTE .COMPLEX Qty: 15 0RF Rx Instructions: Blood Sugar: <150 - 0 units 151-200 - 2 units 201-250 - 4 units 251-300 - 6 units 301-350 - 8 units >350 - 10 units insulin glargine [Lantus Solostar U-100 Insulin] 100 unit/mL (3 mL) insulin pen 30 unit SUBCUT BEDTIME Qty: 15 0RF (DME) pen needle, diabetic 32 gauge x 1/4 needle Qty: 100 0RF Rx Instructions: Use four times a day or as directed. (DME) lancets [FreeStyle Lancets] 28 gauge misc Qty: 100 0RF Rx Instructions: Test four times a day or as directed. prednisone 10 mg tablet See Taper PO DIRECTED Qty: 30 0RF Taper: Prednisone 40 mg daily for 3 Days and 0 Hour 30 mg daily for 3 Days and 0 Hour 20 mg daily for 3 Days and 0 Hour 10 mg daily for 3 Days and 0 Hour Rx Instructions: see taper instructions [id number] 50-325-40 mg tablet 1 tab PO Q6H PRN (Reason: headache) Qty: 10 0RF Spiriva Respimat 2.5 mcg/actuation Mist 2 puff inhalation RDAILY Qty: 4 0RF fluticasone propion-salmeterol [Advair HFA] 45-21 mcg/actuation HFA aerosol inhaler 2 puff inhalation Q12H Qty: 12 0RF (DME) FreeStyle Lite Strips Strip Qty: 100 0RF Rx Instructions: Test three times a day (DME) blood-glucose meter [FreeStyle Lite Meter] Kit Qty: 1 0RF Rx Instructions: test three times per day (DME) pen needle, diabetic 32 gauge x 1/4 needle Qty: 100 0RF Rx Instructions: Use three times a day (DME) lancets [FreeStyle Lancets] 28 gauge misc Qty: 100 0RF Rx Instructions: Test three times a day insulin aspart U-100 100 unit/mL (3 mL) insulin pen 1 sliding scale dose subcut USEASDIRECTD Qty: 15 0RF Rx Instructions: less then of equal to 110 0 111-150 0 151-200 2units 201-250 4 units 251-300 6 units 301-350 8 units greater then 350 10 units call MD if blood glucose greater then 350 insulin aspart U-100 100 unit/mL (3 mL) insulin pen 1 sliding scale dose subcut TIDWM Qty: 15 0RF Rx Instructions: Less than or equal to 110 ---- Give (units): 0 111 to 150 Give (units):0 151 to 200 Give (units):2 201 to 250 Give (units):4 251 to 300 Give (units):6 301 to 350 Give (units):8 Greater than 350 Give (units):10 Call MD if Blood Glucose > :350 Incruse Ellipta 62.5 mcg/actuation blister with device 1 inh inhalation DAILY Qty: 30 0RF Continued albuterol sulfate 2.5 mg /3 mL (0.083 %) solution for nebulization 2.5 mg continuous nebulization QID Qty: 90 0RF albuterol sulfate [Ventolin HFA] 90 mcg/actuation HFA aerosol inhaler 1 puff inhalation Q4-6H PRN (Reason: wheezing) Qty: 6.7 0RF Discontinued fluticasone propion-salmeterol 230-21 mcg/actuation HFA aerosol inhaler 2 puff INHALATION BID Spiriva Respimat 2.5 mcg/actuation mist 2 puff INHALATION DAILY Discharge Orders: Discharge Order (Routine); Ordered 09/26/24 Ordered By: Niurka Marcus Activity on Discharge: As tolerated Stand Alone Forms: Patient Portal Discharge page Print Language: [place] Care Plan Goals: See below Health Concerns: Acute asthma/COPD exacerbation Type 2 diabetes with hyperglycemia Plan of Treatment: Complete course of prednisone as prescribed No further antibiotics required Take long-acting insulin, Lantus in the evening. If a.m. blood sugars less than 120 reduce dose of Lantus by 5 units Take short-acting premeal insulin based on sliding scale Check blood sugar before meals and at bedtime recommend to follow a diabetic diet Take losartan for control of blood pressure Encourage finding a primary care provider for close monitoring of blood sugar and blood pressure Assessment: See discharge summary Discharge Date/Time: 09/26/24 15:53
[2024-09-26 12:30] VITALS: PULSE 67; RESP 16; O2SAT 97
--- NOTE | 2024-09-26 13:34 | MHC.CM.PN ---
Patient medically cleared for dc home self care via private transport. IMM delivered.
[2024-09-26 15:00] VITALS: BP 130/61; PULSE 102; RESP 18; TEMP 36.1; O2SAT 94
== END 2024-09-26 15:53 | disposition home or self-care (01) | DRG 202 ==
LOC: HO.ED 14:07 → HO.EDOVER 16:21 → HO.S3 19:15
PROVIDERS: Hospitalist; Physician Assistant Medical; Admitting Provider Physician Assistant; Emergency Provider Emergency Medicine; Visit Provider Physician Assistant Medical
DX: J45.901 Unspecified asthma with (acute) exacerbation (principal); J44.1 Chronic obstructive pulmonary disease with (acute) exacerbation; Z68.43 Body mass index [BMI] 50.0-59.9, adult; F17.210 Nicotine dependence, cigarettes, uncomplicated; Z71.6 Tobacco abuse counseling; E11.65 Type 2 diabetes mellitus with hyperglycemia; I10 Essential (primary) hypertension; B97.89 Other viral agents as the cause of diseases classified elsewhere; E66.01 Morbid (severe) obesity due to excess calories; Z20.822 Contact with and (suspected) exposure to COVID-19; Z91.148 Patient's other noncompliance with medication regimen for other reason; Z71.3 Dietary counseling and surveillance; Z79.4 Long term (current) use of insulin; Z79.51 Long term (current) use of inhaled steroids; Z79.84 Long term (current) use of oral hypoglycemic drugs; Z79.899 Other long term (current) drug therapy
CPT/HCPCS: 0241U; 36410; 36415; 71045; 80048; 80053; 82803; 82947; 83036; 83735; 84484; 85025; 87633; 93005; 94640; 99285; J0456; J0696; J1650; J2919; J3475

== ENCOUNTER → 2024-09-22 11:29 | Outpatient (BNV) | payer MEDICARE, MEDICAID, SELFPAY | PROVIDERS: Emergency Provider Emergency Medicine; Visit Provider Internal Medicine Cardiovascular Disease | DX: R00.0 Tachycardia, unspecified (principal) | CPT/HCPCS: 93010 ==

== ENCOUNTER → 2024-09-22 13:24 | Outpatient (BNV) | payer MEDICARE, MEDICAID, SELFPAY | PROVIDERS: Emergency Provider Emergency Medicine; Visit Provider Radiology Diagnostic Radiology | DX: R06.02 Shortness of breath (principal) | CPT/HCPCS: 71045 ==

== ENCOUNTER 2024-09-22 16:14 | Outpatient (BNV) | payer MEDICARE, MEDICAID, SELFPAY | END 2024-09-25 10:25 | PROVIDERS: Admitting Provider Physician Assistant; Emergency Provider Emergency Medicine; Visit Provider Radiology Diagnostic Radiology | DX: R06.02 Shortness of breath (principal); R05.9 Cough, unspecified | CPT/HCPCS: 71045 ==

== ENCOUNTER → 2024-09-22 16:14 | Outpatient (BNV) | payer MEDICARE, MEDICAID, SELFPAY | PROVIDERS: Admitting Provider Physician Assistant; Emergency Provider Emergency Medicine; Visit Provider Physician Assistant | DX: E11.65 Type 2 diabetes mellitus with hyperglycemia (principal); J45.901 Unspecified asthma with (acute) exacerbation | CPT/HCPCS: 99222; 99232; 99239 ==

== ENCOUNTER 2025-04-20 10:32 | Outpatient (AMB) | payer MEDICARE, MEDICAID, SELFPAY ==
--- NOTE | 2025-04-20 10:33 | MHC.PC.OV ---
Vital Signs 04/20/25 10:34 Height 5 ft 5 in Weight 319 lb BMI 53.1 BP 148/82 H Blood Pressure Location Lt brachial Position Sitting Respiration 18 Pulse 94 Pulse Source Pulse Oximeter Temp 97.3 F Temp Source Temporal Artery Scan Pulse Oximetry (%) 97 Oxygen Delivery Method Room Air Intake Visit Reasons: SECURITY SME // Requesting a PE Skiver Uppers Or Linings Required: No Accompanied by: Self / Same As Patient Allergies No Known Allergies Allergy (Verified 04/20/25 10:52) Medication List - Last Reconciled 04/20/25 by DESTINY Whitman albuterol sulfate 2.5 mg (3 mL) continuous nebulization QID albuterol sulfate 90 mcg/actuation (Ventolin HFA) 1 puff inhalation Q4-6H PRN blood sugar diagnostic (FreeStyle Lite Strips) Test three times a day blood sugar diagnostic (FreeStyle Lite Strips) Test four times a day or as directed. blood-glucose meter (FreeStyle Lite Meter kit) As Directed blood-glucose meter (FreeStyle Lite Meter kit) test three times per day exzsjxjvey-ujdbjwwlsewto-dhpr 50-325-40 mg 1 tab PO Q6H PRN fluticasone propion-salmeterol 45-21 mcg/actuation (Advair HFA) 2 puffs inhalation Q12H insulin aspart U-100 1 sliding scale dose subcut USEASDIRECTD insulin aspart U-100 1 sliding scale dose subcut TIDWM lancets (FreeStyle Lancets) Test four times a day or as directed. lancets (FreeStyle Lancets) Test three times a day losartan 50 mg See Protocol PO DAILY metformin 500 mg PO BIDWM 90 days pen needle, diabetic Use three times a day pen needle, diabetic Use four times a day or as directed. prednisone See Taper mg PO DIRECTED tiotropium bromide 2.5 mcg/actuation (Spiriva Respimat) 2 puffs inhalation RDAILY tizanidine 4 mg PO BID PRN umeclidinium 62.5 mcg/actuation (Incruse Ellipta) 1 inh inhalation DAILY Tobacco use date assessed: 04/20/25 Dental Screening Dental Screen Date: 04/20/25 Did you have a dental visit in the last 12 months?: Yes Did you have a dental problem in the last 6 months where you did not have access to dental care?: No Was dental information given to patient?: Patient has dentist HPI SECURITY SME // Requesting a PE HPI Details Previous PCP: Abdoulaye Gonzalez, she does not remember the name. Last visit: over 2 years ago Last PE: not in a long time Specialist: needs, pulmonology, ophthalmology, hearing test, she saw orthopedic two weeks ago, right knee, reports that she went to the ER in [facility] and they gave her referral to a place on [address] [place] [address] street. Reports that she had and injection, suspect that it was steroid injection. Reports that it still hurts to walk and she has to call him back to follow up, anxiety, depression OBGYN: obgyn Past medical history: COPD/ASTHMA, TDM Medications: Family HX: Problem: The patient is a 44-year-old female presenting to [facility] and manage multiple chronic conditions, as she has not had a physical exam in a long time. She has a history of type 2 diabetes, and reports her blood sugar does not go higher than 180. Following a recent steroid treatment that elevated her blood sugar, she was prescribed both long-acting and fast-acting insulins, but she has not been taking the insulin out of fear of hypoglycemia. Her medication history for diabetes includes prior use of Trulicity. She was also prescribed metformin 1000 mg after a recent hospital discharge but expresses confusion about the dosing and has not been taking it consistently. She is interested in injectable medications that also aid in weight loss. The patient has a history of both COPD and asthma, for which she uses albuterol with a nebulizer and has used a purple inhaler in the past. She also has a history of sleep apnea, for which she was given a CPAP machine but found it too complicated and uncomfortable to use, essentially she did not tolerate the machine. Cardiovascular history includes hypertension. She is not currently taking her prescribed losartan. Losartan 50 mg daily re-send to pharmacy. Psychiatric history is significant for depression and anxiety. She has been treated in the past with medications including clonazepam, quetiapine (Seroquel), desvenlafaxine (Pristiq), and trazodone, but is not currently in therapy. She reports that trazodone helps her fall asleep but not stay asleep. Other medical history includes recent right knee pain from a sprained collateral ligament, previously treated with a steroid injection that provided some relief. Her last Pap smear was approximately three years ago and she is due for her mammogram as well. [facility] Medical History (Updated 04/20/25 @ 13:08 by DESTINY Whitman) Type 2 diabetes mellitus Obesity Hypertension Asthma-COPD overlap syndrome Social History Household Members: Significant Other and Children Housing: Apartment Alcohol intake: former Patient Tobacco Use Status: Current everyday Tobacco user Tobacco use type: Cigarette Cigarettes Per Day: 10 e-Cigarette/Vaping Use: Never Used Substance Use Type: Marijuana service: No Cognitive needs: No Hearing needs: Yes Vision needs: Yes Questionnaire PHQ-9 Over the last 2 weeks, how often have you been bothered by any of the following problems? 1. Little interest or pleasure in doing things: several days 2. Feeling down, depressed, or hopeless: several days 3. Trouble falling or staying asleep, or sleeping too much: several days 4. Feeling tired or having little energy: more than half the days 5. Poor appetite or overeating: more than half the days 6. Feeling bad about yourself - or that you are a failure or have let yourself or your family down: not at all 7. Trouble concentrating on things, such as reading the newspaper or watching television: not at all 8. Moving or speaking so slowly that other people could have noticed. Or the opposite - being so fidgety or restless that you have been moving around a lot more than usual: not at all 9. Thoughts that you would be better off or of hurting yourself in some way: not at all Total score: 7 Depression Screening Interpretation: Positive Depression Screening Done: Yes 31842 - PHQ-9 Billing: Yes Source: Developed by Drs. Lobo Borges, Quynh Danielson, Javi Patel and colleagues, with an educational shannen from [employer]. Thrive Questionnaire Date Thrive assessed: 09/23/24 I am a: Patient What is your living situation today?: I have a steady place to live Within the past 12 months, did the food you bought not last and you didn't have the money to get more?: Sometimes True Within the past 12 months, did you worry whether your food would run out before you got money to buy more?: Sometimes True Do you have trouble paying for medicines?: No Do you have trouble getting transportation to medical appointments?: Yes Do you have trouble paying your heating and electricity bill?: No Do you have trouble taking care of your child, family member or friend?: I choose not to answer this question Do you have trouble with day-to-day activities such as bathing, preparing meals, shopping, managing finances, etc.?: No Are you currently unemployed and looking for a job?: I choose not to answer this question Are you interested in more education?: No Please select the resources that you would like help with: Transportation Currently or been in a relationship where the following occur: No concerns reported THRIVE Score: 3 AUDIT C Alcohol Use Questionnaire (AUDIT-C) 1. How often do you have a drink containing alcohol?: Monthly or less 2. How many drinks containing alcohol do you have on a typical day when you are drinking?: 1 or 2 3. How often do you have six or more drinks on one occasion?: Less than monthly Total Score: 2 YUDITH-7 AMB Questionnaire YUDITH-7 Date YUDITH - 7 assessed: 04/20/25 Feeling nervous, anxious, or on edge: 2 = More than half the days Not being able to stop or control worryin = More than half the days Worrying too much about different things: 2 = More than half the days Trouble relaxin = More than half the days Being so restless that it is hard to sit still: 2 = More than half the days Becoming easily annoyed or irritable: 2 = More than half the days Feeling afraid as if something awful might happen: 0 = Not at all Total YUDITH-7 score (0-4 normal; 5-9 mild; 10-14 moderate; 15-21 severe): 12 Source: Developed by Drs. Lobo Borges, Quynh Danielson, Javi Patel and colleagues, with an educational shannen from [employer]. YUDITH-7 Assessment Billing YUDITH-7 Assessment Tool: YUDITH-7 Assessment 53730 Review of Systems Const Denies headache(s) Eyes Denies loss of vision ENT Denies vertigo, Denies dizziness, Denies headache(s) and Denies sore throat Card Denies chest pain, Denies leg edema, Denies lightheadedness and Reports dyspnea (Intermittent) Resp Denies cough, Denies hemoptysis, Reports dyspnea (Intermittent) and Reports wheezing (On and off) GI Denies abdominal pain, Denies melena, Denies constipation, Denies diarrhea and Denies vomiting Denies urinary frequency, Denies dysuria and Denies urinary urgency Musc Reports arthralgias (Right knee), Denies joint swelling, Denies numbness and Denies tingling Skin/Breast Denies alopecia and Denies lesions Neuro Denies Abnormal speech present, Denies behavioral changes, Denies vertigo, Denies dizziness, Denies headache(s), Denies loss of vision, Denies memory loss, Denies numbness and Denies tingling Psych Reports anxiety, Denies behavioral changes, Reports depression, Denies memory loss, Denies panic attacks, Denies homicidal ideation and Denies suicidal ideation Mike/Lymph Denies easy bleeding and Denies easy bruising Aller/Immun Reports wheezing (On and off) Physical exam (Primary Care) Vital Signs: Last Vital Signs Temp 97.3 F 04/20/25 10:34 Pulse 94 04/20/25 10:34 Resp 18 04/20/25 10:34 BP 148/82 H 04/20/25 10:34 Pulse Ox 97 04/20/25 10:34 Oxygen Delivery Method Room Air 04/20/25 10:34 BMI result Body Mass Index 53.1 Tobacco/Smoking Status: Tobacco use Status Tobacco use date assessed 04/20/25 04/20/25 10:41 Patient Tobacco Use Status Current everyday Tobacco 04/20/25 10:41 Tobacco use type Cigarette 04/20/25 10:41 e-Cigarette/Vaping Use Never Used 04/20/25 10:41 PHQ-9: PHQ-9 Score PHQ-9: Total score 7 04/20/25 10:41 Depression Screening Interpretation: Positive Thrive Assessment: Date of Thrive Assessment Date Thrive assessed 09/23/24 04/20/25 10:41 Currently or been in a relationship where the following occur: No concerns reported Const General: healthy appearing, no acute distress, alert and awake Nutritional Appearance: well nourished Orientation/consciousness: oriented to person, oriented to place and oriented to time HENMT Ears: TM's normal bilaterally General nose exam: Normal nasal mucous membranes and turbinates present Eyes Conjunctivae: conjunctivae normal Sclerae: sclerae normal Pupils: Equal, round and reactive pupils present Neck Neck: Yes no lymphadenopathy and Yes no JVD Thyroid: Thyroid normal Carotids: no bruits Resp Effort & Inspection: normal respiratory effort and not tachypneic Auscultation: no crackles, no rales, no rhonchi and wheezes inspiratory wheezes and upper bilaterally Cardio Rate: regular rate Rhythm: regular rhythm Heart sounds: S1 normal heart sound present, S2 normal heart sound present, no murmurs and normal S1 and S2 GI Inspection: Yes obesity Palpation (GI): Soft to palpation, nontender, no hepatomegaly and no splenomegaly Auscultation: normal bowel sounds Skin General skin exam: no rashes or lesions noted and dry skin Neuro General: oriented to person, oriented to place and oriented to time Cranial nerves: Yes Equal, round and reactive pupils present Speech: No Abnormal speech present Gait exam (Neuro): Normal gait present Motor exam (neuro): no tremor noted Extrem Right upper extremity: full ROM Left upper extremity: full ROM Right lower extremity: full ROM and knee Details: tenderness Location: of the medial joint line; no swelling; no edema Left lower extremity: full ROM; no edema Psych Mental Status: mental status grossly normal Speech and movement: Normal speech and movement present Affect: normal affect Attitude: cooperative Thought process: Normal thought process present Coding Level of Care Code New Pt Level 4 (72837) Diagnoses Hypertension, unspecified type I10 Hypertension type: unspecified Type 2 diabetes mellitus with hyperglycemia, without long-term current use of insulin E11.65 Diabetes mellitus fpc insulin use: without rodent exterminator use Diabetes mellitus complication status: with hyperglycemia Morbid obesity E66.01 Anxiety and depression F41.9; F32.A Asthma-COPD overlap syndrome J44.89 Acute pain of right knee M25.561 Chronicity: acute Additional Codes PHQ-9 - 69382 - PHQ-9 Billing: Yes ([id number]) YUDITH-7 Assessment Billing - YUDITH-7 Assessment Tool: YUDITH-7 Assessment 74189 ([id number]) Time Spent (min) 39 Assessment & Plan Assessment & Plan (1) Hypertension: Code(s): I10 - Essential (primary) hypertension Category: Medical Qualifiers: Hypertension type: unspecified Qualified Code(s): I10 - Essential (primary) hypertension Plan: The patient has a history of high blood pressure but is not currently taking her prescribed losartan. The plan is for her to resume taking the losartan, and refills will be added to the prescription. Blood pressure medication will not be adjusted until assessing the effects of consistent medication use. (2) Type 2 diabetes mellitus: Code(s): E11.9 - Type 2 diabetes mellitus without complications Category: Medical Qualifiers: Diabetes mellitus rodent exterminator insulin use: without rodent exterminator use Diabetes mellitus complication status: with hyperglycemia Qualified Code(s): E11.65 - Type 2 diabetes mellitus with hyperglycemia Plan: The patient's diabetes is uncontrolled, with medication non-adherence. A1c in office 9.3%. The plan is to order labs, including an blood count, kidney function, and liver function tests. A new prescription for metformin 1000 mg twice daily will be sent, and the old, confusing order will be discontinued. Mounjaro will be initiated at the lowest dose, with plans to titrate every four weeks; this was chosen over her previous Trulicity due to its greater efficacy and dual benefit for weight loss. The goal A1c of less than 7% was discussed. (3) Morbid obesity: Code(s): E66.01 - Morbid (severe) obesity due to excess calories Category: Medical Plan: Encouraged to exercise for at least 30 minutes a day/5 days a week Healthy eating discussed. Encouraged to eat fruits/vegetables, protein-fish/baked chicken, and to avoid salty/fried foods, sweets, caffeine and carbohydrates. Encouraged to increase water intake 6-8 glasses a day (4) Anxiety and depression: Code(s): F41.9 - Anxiety disorder, unspecified; F32.A - Depression, unspecified Category: Medical Plan: Longstanding history of anxiety and depression. The patient would like to be referred to get her mental health back on a control. Psychiatry Referral placed. (5) Asthma-COPD overlap syndrome: Code(s): J44.89 - Other specified chronic obstructive pulmonary disease Category: Medical Plan: The patient has a combined history of COPD and asthma and is a current smoker. A referral to pulmonology will be placed for further management, as she may require different types of inhalers. Smoking cessation was strongly encouraged. (6) Right knee pain: Code(s): M25.561 - Pain in right knee Category: Medical Qualifiers: Chronicity: acute Qualified Code(s): M25.561 - Pain in right knee Plan: Patient reports right knee injury status post ER visit at [facility]. She was referred to Orthopedics through [facility] and has gotten 1 injection so far that she suspects to be a steroid injection. Patient reports that she was told that she has collateral ligament sprain. Reports that the injection has already been wearing off and she is planning on calling their today to be re-evaluated. Follow up with Orthopedics as scheduled. Orders: Orders AMB Hemoglobin A1c Today E11.9 - Type 2 diabetes mellitus without complications Complete Blood Count Auto Diff Today E11.9 - Type 2 diabetes mellitus without complications, I10 - Essential (primary) hypertension, J44.1 - Chronic obstructive pulmonary disease with (acute) exacerbation, J45.901 - Unspecified asthma with (acute) exacerbation Comprehensive [place]. Panel Fast Today E11.9 - Type 2 diabetes mellitus without complications, I10 - Essential (primary) hypertension, J44.1 - Chronic obstructive pulmonary disease with (acute) exacerbation, J45.901 - Unspecified asthma with (acute) exacerbation TSH reflex Free T4 Today E11.9 - Type 2 diabetes mellitus without complications, I10 - Essential (primary) hypertension, J44.1 - Chronic obstructive pulmonary disease with (acute) exacerbation, J45.901 - Unspecified asthma with (acute) exacerbation Vitamin D 25-OH Total Today E11.9 - Type 2 diabetes mellitus without complications, I10 - Essential (primary) hypertension, J44.1 - Chronic obstructive pulmonary disease with (acute) exacerbation, J45.901 - Unspecified asthma with (acute) exacerbation Lipid Panel Today E11.9 - Type 2 diabetes mellitus without complications, I10 - Essential (primary) hypertension, J44.1 - Chronic obstructive pulmonary disease with (acute) exacerbation, J45.901 - Unspecified asthma with (acute) exacerbation UA CC w/rflx Micro + Cult Today E11.9 - Type 2 diabetes mellitus without complications, I10 - Essential (primary) hypertension, J44.1 - Chronic obstructive pulmonary disease with (acute) exacerbation, J45.901 - Unspecified asthma with (acute) exacerbation MM tomosynthesis screening BI Today Z12.31 - Encounter for screening mammogram for malignant neoplasm of breast Referrals [facility] Referral Z12.4 - Encounter for screening for malignant neoplasm of cervix Pulmonology Referral J44.89 - Other specified chronic obstructive pulmonary disease Psychiatry Referral F32.A - Depression, unspecified, F41.9 - Anxiety disorder, unspecified Medications: New tirzepatide (Mounjaro) for 4 weeks 2.5 mg (0.5 mL) subcut QWEEK 2 mL 0RF E11.9 - Type 2 diabetes mellitus without complications tizanidine 4 mg PO BID PRN 30 tabs 0RF muscle spasticity metformin 1,000 mg PO BID 90 tabs 3RF Refilled fluticasone propion-salmeterol 45-21 mcg/actuation (Advair HFA) 2 puffs inhalation Q12H 12 grams 3RF umeclidinium 62.5 mcg/actuation (Incruse Ellipta) 1 inh inhalation DAILY 30 ea 3RF losartan 50 mg See Protocol PO DAILY 90 tabs 3RF albuterol sulfate 90 mcg/actuation (Ventolin HFA) 1 puff inhalation Q4-6H PRN 8.5 grams 3RF wheezing Discontinued metformin Discontinued Reason: Duplicate 500 mg PO BIDWM 90 days 180 tabs 0RF
[2025-04-20 10:34] VITALS: BP 148/82; PULSE 94; RESP 18; TEMP 36.3; O2SAT 97; BMI 53.1
--- OUTSIDE RECORDS SUMMARY | 2025-04-20 12:09 | XMS_ITS | Clinical Summary ---
Author Organization [facility] Address [address] [place] [address] Phone Care Team Providers Care Associate Dean Of Women Name Role Phone Physician, Pcp Unknown Primary Care Provider Yahaira vailable Allergies No known active allergies Encounters Date Type Department Care Team Description 01/27/2025 3:43 PM EDT - 01/27/2025 5:42 PM EDT Emergency [facility] Emergency [address] [place] [address] Jarad Abel MD Sprain of right knee, unspecified ligament, initial encounter (Primary Dx) Discharge Disposition: Home or Self Care from Last 3 Months Medical History Medical History Date Comments HTN (hypertension) Asthma COPD (chronic obstructive pulmonary disease) (CM S/HCC V24, CMS/HCC V28) Social History Tobacco Use Types Packs/Day Years Used Date Smoking Tobacco: Every Day Cigarettes Smokeless Tobacco: Never Tobacco Cessation:Ready to Q uit: Not Asked; Counseling Given: Not Answered Comments Unknown Sex and Gender Information Value Date Recorded Sex Assigned at Not on file Legal Sex Female 8:14 PM EST Gender Identity Not on file Sexual Orientation Not on file Obstetrics History Last Filed Vital Signs Vital Sign Reading Time Taken Comments Blood Pressure 152/93 01/27/2025 3:25 PM EDT Pulse 87 01/27/2025 3:25 PM EDT Temperature 36.7 C (98.1 F) 01/27/2025 3:25 PM EDT Respiratory Rate 18 01/27/2025 3:25 PM EDT Oxygen Saturation 97% 01/27/2025 3:25 PM EDT Inhaled Oxygen Concentration - - Weight 150 kg (330 lb) 01/27/2025 3:25 PM EDT Height 165.1 cm (5' 5 ) 01/27/2025 3:25 PM EDT Body Mass Index 54.91 01/27/2025 3:25 PM EDT Plan of Treatment Health Maintenance Due Date Last Done Comments Breast Cancer Screening 1980 DTaP,Tdap,and Td Vaccines (1 - Tdap) 08/27/1999 Hepatitis B Vaccines (1 of 3 - 19+ 3-dose series) 08/27/1999 Pneumococcal Vaccine: Pediat rics (0 to 5 Years) and At-Risk Patients (6 to 49 Years) (1 of 2 - PCV) 08/27/1999 Cervical Cancer Screening: P ap Smear 2001 HPV Vaccines (1 - 3-dose SCD M series) 08/27/2007 Cholesterol Screening (Lipid Panel) 07/04/2023 HIV Screening 07/04/2023 Hepatitis C Screening 07/04/2023 Medicare Annual Wellness Visit 07/04/2023 Social Influencers of Health Screening 07/04/2023 Depression Screening 06/10/2024 COVID-19 Vaccine ( - 2023-2 5 season) 2025 Influenza Vaccine (#1) 2025 RSV Immunization Adult Patie nts (1 - 1-dose 75+ series) 08/27/2055 HIB Vaccines Aged Out No longer eligi [...] on patient's age to complete this topic Procedures Procedure Name Priority Date/Time Associated Diagnosis Comments XR KNEE 4+ VIEWS RIGHT STAT 01/27/2025 4:19 PM EDT from Last 3 Months Results * XR Knee 4+ Views Right (01/27/2025 4:19 PM EDT) Anatomical Region Laterality Modality Lower Extremities, Knee Right [facility] 01/27/2025 4:28 PM EDT Impressions 01/27/2025 4:29 PM EDT No fracture or dislocation. -------- FINAL REPORT -------- Dictated By: Puma Corral Dictated Date: 01/27/2025 16:28 ET Assigned Physician: Puma Croral Reviewed and Electronically Signed By: Puma Corral Signed Date: 01/27/2025 16:29 ET Workstation ID: [id number] Transcribed By: Self Edit Transcribed Date: 01/27/2025 16:28 ET Narrative 01/27/2025 4:29 PM EDT INDICATION: Pain FINDINGS: 4 views of the right knee were obtained. No prior studies available for comparison. Bones: No fracture or dislocation. Soft tissues: No soft tissue swelling. Possible small joint effusion. Procedure Note Puma Corral MD - 01/27/2025 INDICATION: Pain FINDINGS: 4 views of the right knee were obtained. No prior studiesavailable for comparison. Bones: No fracture or dislocation. Soft tissues: No soft tissue swelling. Possible small joint effusion. IMPRESSION: No fracture or dislocation. -------- FINAL REPORT -------- Dictated By: Puma Corral Dictated Date: 01/27/2025 16:28 ET Assigned Physician: Puma Corral Reviewed and Electronically Signed By: Puma Corral Signed Date: 01/27/2025 16:29 ET Workstation ID: [id number] Transcribed By: Self Edit Transcribed Date: 01/27/2025 16:28 ET Rudi Joshi MD IMG XR PROCEDURES Final Result from Last 3 Months Insurance MEDICARE [place]ICA[place] - [place] Care Teams Associate Dean Of Women Relationship Specialty Start Date End Date Physician, Pcp Unknown PCP - General 01/27/25
--- OUTSIDE RECORDS SUMMARY | 2025-04-20 12:09 | XMS_ITS | Patient Health Record ---
Author Organization [facility] Address [address] [place] [address] Care Team Providers Care Internal Consultant Name Role Phone BELEM Lechuga Primary Care Provider Unavailab BLANKA Rangel Unavailable [phone] Reason For Referral No Information Medications Medication SIG (Take, Route, Frequency, Duration) Notes Start Date End Date Status Singulair 10 MG 1 tablet in the evening Orally Once a day Active CPAP MACHINE NEW or REPLACEMENT E0601 Airfit P10 Pillow Mask A7034 ResMed 13 CWP SIZE MEDIUM 04/18/2018 Active Methocarbamol 500 MG TAKE 2 TABLETS BY MOUTH 4 TIMES A DAY Oral Active HYDROcodone-Acetaminophen 5-325 MG (Schedule II Drug) TAKE 1 TABLET BY MOUTH EVERY 6 HOURS NEEDED FOR PAIN Oral Active methylPREDNISolone 4 MG TAKE 6 TABLETS O N DAY 1 DIRECTED ON PACKAGE AND DECREASE BY 1 TAB EACH DAY FOR A TOTAL OF 6 DAYS Oral; Duration: 6 Active Spiriva HandiHaler 18 MCG 1 capsule Inha lation TWICE a day Active Albuterol Sulfate HFA 108 (9 0 Base) MCG/ACT 2 puffs as needed Inhalation qid prn Active Albuterol Sulfate (2.5 MG/3M L) 0.083% 3 ml as needed Inhalation Three times a day Active Advair Diskus 500-50 MCG/DOSE 1 puff Inh alation Twice a day Active Immunizations Vaccine Route Administration Date Status Comme nts Pneumococcal Unknown 01/18/2016 Administered INFLUENZA Unknown 03/21/2017 Administered Social History Tobacco Use: Social History Observation Description Date Details (start date - stop date) Current Smoker NA - NA Tobacco use smoking smart form: Question Answer Notes Are you a: current smoker Are you interested in quitting? Not ready to shanda t How many cigarettes a day do you smoke? 21-30 How soon after you wake up do you smoke your fir st cigarette? after 60 min How often do you smoking Cigarettes? every day When did you start smoking AT AGE 15 Alcohol Screening Smart Form: Question Answer Notes Did you have a drink contain ing alcohol in the past year? Yes Points 4 Interpretation Positive How often did you have a dri nk containing alcohol in the past year? Monthly or less (1 point) How many drinks did you have on a typical day when you were drinking in the past year? 5 or 6 (2 points) How often did you have six o r more drinks on one occasion in the past year? Less than monthly (1 point) Problems Problem Type SNOMED Code ICD Code Onset Dates Problem Status W/U Status Risk Notes Problem Tobacco abuse (6897446201) Tobacco abuse (Z72.0) Active confirmed Problem Chronic pain syndrome (209710203) Chronic pain disorder (G89.4) Active confirmed Problem Counseling about tobacco use (992998254) Tobacco abuse counseling (Z71.6) Active confirmed Problem Obstructive sleep apnea syndrome (64944058) KHANH (obstructive sleep apnea) (G47.33) Active confirmed Problem Chronic obstructive asthma co-occurrent with acute exacerbation of asthma (disorder) (133600054840171 02) Chronic obstructive asthma (J44.9) Active confirmed Problem Body mass index 40+ - severely obese (521612688) BMI 50.0-59.9, adult (Z68.43) Active confirmed Problem Major depression, single episode (07745898) Major depressive disorder, remission status unspecified, unspecified whether recurrent (F32.9) Active confirmed Plan Of Treatment Pending Test Test Name Order Date Pulmonary Function Test (FULL TEST) 11/2017 [facility] 02/13/2018 [id number] QUANTITIVE - 235 11/2017 ALPHA 1 ANTITRYPSIN (AAT) PHENOTYPE 11/2017 Skin Allergy Testing 02/13/2018 Insurance Providers Payer Name Payer Address Payer Phone Subscriber Number Group Number Insured Name Patient Relationship to Insured Coverage Start Date Coverage End Date [employer] PLANS [facility] [address] [place], [place] [id number] LESLEE MILLER Self - patient is the insured Medical (General) History Medical History History ICD Code asthma: Yes cancer: No cancer, lung: No CONGESTIVE HEART FAILURE: No coronary artery disease: No COPD: Yes obstructive sleep apnea: No Surgical History Surgery Date(Month/Year) tubal ligation hernia repair X 2 Hospitalization History Reason Date(Month/Year) *see surgery above Pneumothorax asthma exacerbation ( 3 times in the pas t year 2016-)
== END 2025-04-20 11:34 | disposition home or self-care (01) ==
LOC: HO.HMCH 10:32
DX: E11.65 Type 2 diabetes mellitus with hyperglycemia (principal); E66.01 Morbid (severe) obesity due to excess calories; J44.89 Other specified chronic obstructive pulmonary disease; Z68.43 Body mass index [BMI] 50.0-59.9, adult; I10 Essential (primary) hypertension; F41.9 Anxiety disorder, unspecified; F32.A Depression, unspecified; M25.561 Pain in right knee

== ENCOUNTER → 2025-04-20 10:32 | Outpatient (BNVA) | payer MEDICARE, MEDICAID, SELFPAY | DX: I10 Essential (primary) hypertension (principal); E11.65 Type 2 diabetes mellitus with hyperglycemia; E66.01 Morbid (severe) obesity due to excess calories; F41.9 Anxiety disorder, unspecified; F32.A Depression, unspecified; M25.561 Pain in right knee; Z13.31 Encounter for screening for depression; Z13.39 Encounter for screening examination for other mental health and behavioral disorders; J45.901 Unspecified asthma with (acute) exacerbation; J44.1 Chronic obstructive pulmonary disease with (acute) exacerbation | CPT/HCPCS: 96127; 99202 ==

== ENCOUNTER 2025-05-18 12:22 | Outpatient (AMB) | payer MEDICARE, MEDICAID, SELFPAY ==
--- NOTE | 2025-05-18 12:42 | MHC.OFFVIS ---
Vital Signs 05/18/25 12:50 Height 5 ft 5 in Weight 319 lb BMI 53.1 BP 130/72 Blood Pressure Location Lt brachial Position Sitting Respiration 18 Pulse 78 Pulse Source Palpation Intake Visit Reasons: New patient Annual Construction Person Required: No Accompanied by: Daughter Allergies No Known Allergies Allergy (Verified 04/20/25 10:52) Medication List - Last Reconciled 05/18/25 by Alma Rosa Urena CNM albuterol sulfate 2.5 mg (3 mL) continuous nebulization QID albuterol sulfate 90 mcg/actuation (Ventolin HFA) 1 puff inhalation Q4-6H PRN blood sugar diagnostic (FreeStyle Lite Strips) Test three times a day blood sugar diagnostic (FreeStyle Lite Strips) Test four times a day or as directed. blood-glucose meter (FreeStyle Lite Meter kit) As Directed blood-glucose meter (FreeStyle Lite Meter kit) test three times per day ybtxntwtzk-zcbirznzvnisn-atlt 50-325-40 mg 1 tab PO Q6H PRN fluticasone propion-salmeterol 45-21 mcg/actuation (Advair HFA) 2 puffs inhalation Q12H insulin aspart U-100 1 sliding scale dose subcut USEASDIRECTD insulin aspart U-100 1 sliding scale dose subcut TIDWM lancets (FreeStyle Lancets) Test four times a day or as directed. lancets (FreeStyle Lancets) Test three times a day losartan 50 mg See Protocol PO DAILY metformin 1,000 mg PO BID pen needle, diabetic Use three times a day pen needle, diabetic Use four times a day or as directed. prednisone See Taper mg PO DIRECTED tiotropium bromide 2.5 mcg/actuation (Spiriva Respimat) 2 puffs inhalation RDAILY tirzepatide (Mounjaro) 2.5 mg (0.5 mL) subcut QWEEK tizanidine 4 mg PO BID PRN umeclidinium 62.5 mcg/actuation (Incruse Ellipta) 1 inh inhalation DAILY Post menopausal: No Patient : No HPI Comments Details: Pt presents today for ANNUAL exam , she is new to the office and here to establishn care. Referred by her PCP. 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 She denies any issues of DV she agrees to gc/ct screening Exercise: not active Contraception: tubal ligation . Last Pap: unknown , Results: she does repot hx of abn paps with cone biopsy > 15 yrs ago Last mammo: none - ordered by PCP, [facility] Medical History Type 2 diabetes mellitus Obesity Hypertension Asthma-COPD overlap syndrome Surgical History (Updated 05/18/25 @ 13:37 by Alma Rosa Urena CNM) History of hernia repair Hx of tubal ligation Family History (Updated 05/18/25 @ 13:27 by Alma Rosa Urena CNM) Father Cirrhosis of liver Alcohol abuse Hypertension Diabetes Mother Hypertension Diabetes Brother No problems noted. Sister No problems noted. Sister No problems noted. Sister No problems noted. Maternal Grandmother Uterine cancer Social History (Updated 05/18/25 @ 13:37 by Alma Rosa Urena CNM) Household Members: Significant Other and Children Housing: Apartment Alcohol intake: former Patient Tobacco Use Status: Current everyday Tobacco user Tobacco use type: Cigarette Cigarettes Per Day: 10 e-Cigarette/Vaping Use: Never Used Substance Use Type: Marijuana service: No Current occupational status: employed Cognitive needs: No Hearing needs: Yes Vision needs: Yes Female Reproductive History Menstrual Duration of menses: 6-7 days Date of last menstrual period: 04/29/25 control method: permanent sterilization Total pregnancies: 9 Full term: 6 Premature: 1 Number of Living Children: 7 Ab spontaneous: 2 History of abnormal pap smear: Yes Review of Systems Const Reports no additional complaints Eyes Reports no additional complaints ENT Reports no additional complaints Card Reports no additional complaints Resp Reports no additional complaints GI Reports no additional complaints Reports as per [facility] Skin/Breast Reports system reviewed and no additional complaints, except as documented Physical Exam Const General: cooperative, healthy appearing and no acute distress Nutritional Appearance: obese Orientation/consciousness: patient oriented x3 HEENT Other: lip piercing Head: Yes normal to inspection and Yes normocephalic Ears: external ears normal General nose exam: Normal external nose present Neck Neck: Yes normal visual inspection Chest Breast/axilla inspection: normal inspection of the breasts, normal inspection of the axillae and Other (No skin changes, peau d orange, or nipple discharge noted) Breast/axilla palpation: normal palpation of the breasts, normal palpation of the axillae and no axillary lymphadenopathy Resp Effort & Inspection: normal respiratory effort and able to speak in complete sentences GI Inspection: No distended Palpation (GI): Soft to palpation, nontender and no masses Percussion: Yes normal to percussion Rectal Exam - Female: No External hemorrhoid(s) present External Female Exam: normal external appearance and normal appearance of the urethra Speculum Exam - Vagina: normal appearance of the vagina and other (creamy white vag discharge) Speculum Exam - Cervix: normal appearance of the cervix (friable with cytobrush) and normal palpation (neg CMT) Bimanual exam- vagina & uterus: normal bimanual exam, normal palpation (neg CMT), uterine mobility normal and non-tender Bimanual Exam- Adnexa, other: Other (difficult to fully assess adnexa d/t body habitus, but no pelvic masses ) Skin Other: multiple multiple tattoos General skin exam: no rashes or lesions noted Neuro General: patient oriented x3 and moves all extremities Extrem General: Yes full ROM Psych Speech and movement: Normal speech and movement present Affect: normal affect Attitude: cooperative Thought process: Normal thought process present Assessment & Plan Assessment & Plan (1) Well woman exam with routine gynecological exam: Code(s): Z01.419 - Encounter for gynecological examination (general) (routine) without abnormal findings (2) Screening breast examination: Code(s): Z12.39 - Encounter for other screening for malignant neoplasm of breast (3) Screening for malignant neoplasm of cervix: Code(s): Z12.4 - Encounter for screening for malignant neoplasm of cervix (4) Heavy periods: Code(s): N92.0 - Excessive and frequent menstruation with regular cycle Qualifiers: Menorrhagia type: with irregular cycle Qualified Code(s): N92.1 - Excessive and frequent menstruation with irregular cycle (5) Encounter for screening examination for sexually transmitted disease: Code(s): Z11.3 - Encounter for screening for infections with a predominantly sexual mode of transmission (6) Tobacco use: Code(s): Z72.0 - Tobacco use Plan During the visit, the following areas of concern were addressed: Monitoring of the menstrual cycle Regular exercise Healthy lifestyle Smoking cessation Domestic violence Menopausal/chalino-menopausal signs and symptoms, including nonprescription strategies for management Health Maintenance and Screening -Reviewed ASCCP guidelines for Paps and yearly (bi-yearly ) pelvic exam. -Reviewed and encouraged diet and exercise for cardiovascular and bone health -Reviewed breast self-awareness. Importance of yearly mammogram after age 40 (earlier if first-degree relative with breast cancer at a younger age ) Discuss use of 3 times per week weight-bearing exercise, vitamin D3 and servings of dietary calcium daily for bone health. -continue to follow with PCP for general medical care, immunizations. Screening strategies for colon cancer after age 50. Discussion of Kegel exercises for urinary incontinence Family and personal history of cancer reviewed. Genetic screening- not indicated The patient has BMI: > 50 The patient is overweight. Approaches towards weight loss are discussed including burning more calories than one takes in by frequent, small meals, portion control, avoiding eating before bedtime, regular exercise with an emphasis on duration rather than intensity, she would like to know if she can plan for a . I explained that salpingectomy is a permanent procedure and can seek out services at reproductive endocrine for further eval/consultation I also explained given her age and co-morbidities, she is at greater risk for complications/ would strongly advise against at this time RTO one year or sooner prn Follow up after ultrasound to review results/ recommend EMB pending results she has lab orders still pending from her PCP, [facility]well to complete lizzie Alma Rosa Urena CNM Note about provider documentation : If you or the patient named in this chart and are reviewing your medical notes, please note that medical documentation is often written with abbreviations and medical terminology, and directed for other providers who may be involved in your care as well. Documentation is critical to record what has happened, what tests were ordered, and so they are interpreted with the resulting diagnoses. These nodes have been made available for patient review but not specifically written for the patient. Important health information is always given to my patients in clinical instructions. Please review your after visit summary and our contact our clinical staff if you have any questions. Orders: Orders Bacterial Vaginosis Panel Today Z01.419 - Encounter for gynecological examination (general) (routine) without abnormal findings, Z11.3 - Encounter for screening for infections with a predominantly sexual mode of transmission CT NG by PCR Vag/Cerv Today Z01.419 - Encounter for gynecological examination (general) (routine) without abnormal findings, Z11.3 - Encounter for screening for infections with a predominantly sexual mode of transmission Pap Smear Today Z01.419 - Encounter for gynecological examination (general) (routine) without abnormal findings, Z12.4 - Encounter for screening for malignant neoplasm of cervix US pelvic and transvaginal 2 Weeks N92.0 - Excessive and frequent menstruation with regular cycle Coding Level of Care Code New Pt Prev Care 40-64y(58954) Diagnoses Well woman exam with routine gynecological exam Z01.419 Screening breast examination Z12.39 Screening for malignant neoplasm of cervix Z12.4 Menorrhagia with irregular cycle N92.1 Menorrhagia type: with irregular cycle Encounter for screening examination for sexually transmitted disease Z11.3 Tobacco use Z72.0
[2025-05-18 12:50] VITALS: BP 130/72; PULSE 78; RESP 18; BMI 53.1
== END 2025-05-18 13:18 | disposition home or self-care (01) ==
LOC: HO.HWSM 12:22
PROVIDERS: Visit Provider Advanced Practice Midwife
DX: Z01.419 Encounter for gynecological examination (general) (routine) without abnormal findings (principal); Z12.39 Encounter for other screening for malignant neoplasm of breast; Z12.4 Encounter for screening for malignant neoplasm of cervix; N92.1 Excessive and frequent menstruation with irregular cycle; Z11.3 Encounter for screening for infections with a predominantly sexual mode of transmission; Z72.0 Tobacco use
CPT/HCPCS: G0101; Q0091

== ENCOUNTER 2025-05-18 12:22 | Outpatient (REF) | payer MEDICARE, MEDICAID, SELFPAY ==
--- OUTSIDE RECORDS SUMMARY | 2025-05-18 17:34 | XMS_ITS | Patient Health Record ---
Author Organization [facility] Address [address] [place] [address] Care Team Providers Care Anode Builder Name Role Phone BELEM Lechuga Primary Care Provider Unavailab BLANKA Rangel Unavailable [phone] Reason For Referral No Information Medications Medication [...] Vaccine Route Administration Date Status Comme nts INFLUENZA Unknown 03/21/2017 Administered Pneumococcal Unknown 01/18/2016 Administered Social History Tobacco Use: Social History [...] W/U Status Risk Notes Problem Tobacco abuse (4436613429) Tobacco abuse (Z72.0) Active confirmed Problem Chronic pain syndrome (540289220) Chronic pain disorder (G89.4) Active confirmed Problem Counseling about tobacco use (963355712) Tobacco abuse counseling (Z71.6) Active confirmed Problem Obstructive sleep apnea syndrome (29317905) KHANH (obstructive sleep apnea) (G47.33) Active confirmed Problem Chronic obstructive asthma co-occurrent with acute exacerbation of asthma (disorder) (507349005255751 02) Chronic obstructive asthma (J44.9) Active confirmed Problem Body mass index 40+ - severely obese (662173903) BMI 50.0-59.9, adult (Z68.43) Active confirmed Problem Major depression, single episode (00503376) Major depressive disorder, remission status unspecified, unspecified whether recurrent (F32.9) Active confirmed Plan Of Treatment Pending Test Test Name Order Date Pulmonary Function Test (FULL TEST) 11/2017 [facility] 02/13/2018 [id number] QUANTITIVE - 235 11/2017 ALPHA 1 ANTITRYPSIN (AAT) PHENOTYPE 11/2017 Skin Allergy Testing 02/13/2018 Insurance Providers Payer Name Payer Address Payer Phone Subscriber Number Group Number Insured Name Patient Relationship to Insured Coverage Start Date Coverage End Date [employer] PLANS [facility] [address] [place], [place] [id number] LESLEE MILLER Self - patient is the [...]
--- OUTSIDE RECORDS SUMMARY | 2025-05-18 17:34 | XMS_ITS | Clinical Summary ---
Author Organization [facility] Address [address] [place] [id number] Phone Care Team Providers Care Jewish Thought Professor Name Role Phone Physician, Pcp Unknown Primary Care Provider Yahaira vailable Allergies No known active allergies Medical History Medical History Date Comments HTN [...] on file Sexual Orientation Not on file Last Filed Vital Signs Vital Sign Reading [...] Screening 07/04/2023 Depression Screening 06/10/2024 COVID-19 Vaccine (1 - 2024-2 6 season) 2025 Influenza Vaccine (#1) 2025 RSV [...] on patient's age to complete [place] [id number] [place] - [place] Care Teams Jewish Thought Professor Relationship Specialty Start Date End Date Physician, Pcp Unknown PCP - General 01/27/25
[2025-05-19 13:15] LABS: Bacterial Vaginosis PCR POSITIVE (Negative); Candida Group PCR NOT DETECTED (Not Detect); Candida glab krusei PCR NOT DETECTED (Not Detect); Trichomonas vaginalis PCR NOT DETECTED (Not Detect)
[2025-05-19 13:47] LABS: CT PCR NOT DETECTED (Not Detect.); NG PCR NOT DETECTED (Not Detect.)
== END 2025-05-18 12:23 | disposition home or self-care (01) ==
LOC: HO.LNP 12:22
PROVIDERS: Visit Provider Advanced Practice Midwife
DX: Z01.419 Encounter for gynecological examination (general) (routine) without abnormal findings (principal); Z11.51 Encounter for screening for human papillomavirus (HPV); Z12.39 Encounter for other screening for malignant neoplasm of breast; N92.1 Excessive and frequent menstruation with irregular cycle; Z20.2 Contact with and (suspected) exposure to infections with a predominantly sexual mode of transmission; Z72.0 Tobacco use
CPT/HCPCS: 81515; 87491; 87591; 87626; 88175